=== PATIENT | female | born 1940 | race Caucasian/White ===

== ENCOUNTER → 2016-12-29 | Outpatient (CLI) | payer BC ==
--- NOTE | 2016-12-29 17:36 | CARD ---
APPROVED REPORT EXAM: Two-dimensional and M-mode echocardiogram with Doppler and color Doppler. Other Information Quality : Good INDICATION Murmur MITRAL REGURGITATION 2D DIMENSIONS Left Atrium(2D)3.5 (1.6-4.0cm)IVSd1.2 (0.7-1.1cm) Aortic Root(2D)2.8 (2.0-3.7cm)LVDd4.9 (3.9-5.9cm) LVOT Diameter2.0 (1.8-2.4cm)PWd1.2 (0.7-1.1cm) LVDs3.2 (2.5-4.0cm)FS (%) 35.7 % SV74.7 mlLVEF(%)65.0 (>50%) Aortic Valve AoV Peak Theron.213.8cm/sAoV VTI54.4cm AO Peak GR.18.3mmHgLVOT Peak Theron.104.8cm/s AO Mean GR.10mmHgAVA (VMAX)1.55cm2 Mitral Valve MV E Fcqzjdhw785.4cm/sMV DECEL PPMV010pw MV A Dpepjwwl20.6cm/sE/A Ratio1.3 MVA Planimetry1.60cm2 Tricuspid Valve TR P. Svjyqlrw109bx/sRAP DTFOGQVE1shFd TR Peak Gr.52gqUkLFTP04aeLh Pulmonary Vein S1 Eezymrqk60.8cm/sD2 Umdzbbuh74.3cm/s LEFT VENTRICLE The left ventricle is normal size. There is mild concentric left ventricular hypertrophy. Left ventri franki systolic function is normal. The Ejection Fraction is 65%. There is normal LV segmental wall chay on. Transmitral Doppler flow pattern is Grade I-abnormal relaxation pattern. RIGHT VENTRICLE The right ventricle is normal size. There is normal right ventricular wall thickness. The right ventr icular systolic function is normal. ATRIA The left atrium size is normal. The right atrium size is normal. The interatrial septum is intact wit h no evidence for an atrial septal defect or patent foramen ovale as noted on 2-D or Doppler imaging. AORTIC VALVE The aortic valve is mildly thickened and calcified but opens well. Doppler and Color Flow revealed mi ld aortic regurgitation. There is some partial fusion of 2 cusps of the aortic valve but no significa nt gradient was noted by continuous wave doppler MITRAL VALVE The mitral valve is calcified but opens well. There is no evidence of mitral valve prolapse. There is no mitral valve stenosis. Doppler and Color-flow revealed mild to moderate mitral regurgitation. TRICUSPID VALVE The tricuspid valve is normal in structure and function. Doppler and Color Flow revealed mild tricusp id regurgitation. There is no pulmonary hypertension. The PA pressure was estimated at 22 mmHg. There is no tricuspid valve stenosis. PULMONIC VALVE The pulmonic valve is mildly thickened. Doppler and Color Flow revealed trace to mild pulmonic valvul ar regurgitation. There is no pulmonic valvular stenosis. GREAT VESSELS The aortic root is normal in size. The ascending aorta is normal in size. The IVC is normal in size a nd collapses >50% with inspiration. PERICARDIAL EFFUSION There is no pleural effusion. There is no evidence of significant pericardial effusion. Critical Notification Critical Value: No <Conclusion> Left ventricle systolic function is normal. The Ejection Fraction is 65%. Transmitral Doppler flow pattern is Grade I-abnormal relaxation pattern. There is mild concentric left ventricular hypertrophy. The left atrium size is normal. The right atrium size is normal. Doppler and Color Flow revealed mild aortic regurgitation. There is some partial fusion of 2 cusps of the aortic valve but no significant gradient was noted by continuous wave doppler Doppler and Color-flow revealed mild to moderate mitral regurgitation. Doppler and Color Flow revealed mild tricuspid regurgitation. There is no pulmonary hypertension. The PA pressure was estimated at 22 mmHg. Doppler and Color Flow revealed trace to mild pulmonic valvular regurgitation. There is no evidence of significant pericardial effusion.
== END | disposition home or self-care (01) ==
LOC: ECHO 09:41
PROVIDERS: ATTEND Internal Medicine Cardiovascular Disease
DX: I08.3 Combined rheumatic disorders of mitral, aortic and tricuspid valves (principal)
CPT/HCPCS: 93306

== ENCOUNTER 2017-11-23 13:24 | Inpatient (IN) | payer BC ==
[~2017-11-23] VITALS: Ht 157.5 cm; Wt 72.3 kg
[2017-11-23 14:23] LABS: BASO % 0 % (0-3); EOS # 0.2 x10^3/uL (0.0-0.7); EOS % 2 % (0-3); HEMATOCRIT 32.7 % (36.0-47.0); HEMOGLOBIN 11.3 g/dL (12.0-15.5); LYMPH # 1.9 x10^3/uL (1.0-4.8); LYMPH % 19 % (24-48); MEAN CORPUSCULAR HEMOGLOBIN 29 pg (25-35); MEAN CORPUSCULAR HGB CONC 35 g/dL (31-37); MEAN CORPUSCULAR VOLUME 83 fL (79-100); MONO # 0.8 x10^3/uL (0.0-1.1); MONO % 8 % (0-9); NEUT # 7.5 x10^3uL (1.8-7.7); NEUT % 71 % (31-73); PLATELET COUNT 334 x10^3/uL (140-400); RED BLOOD COUNT 3.93 x10^6/uL (3.50-5.40); WHITE BLOOD COUNT 10.5 x10^3/uL (4.0-11.0)
--- NOTE | 2017-11-23 14:37 | RAD ---
EXAM: Chest, 2 views. HISTORY: Syncope. COMPARISON: None. FINDINGS: 2 views of the chest are obtained. There is no infiltrate, pleural effusion or pneumothorax. The heart is normal in size. IMPRESSION: No acute pulmonary finding. Electronically signed by: Shyanne Erickson MD (11/23/2017 2:34 PM) [place] [id number]
--- NOTE | 2017-11-23 14:43 | EKG ---
[facility] [address] [place] [address] Test Date: 2017-11-23 Test Time: 13:32:52 Pat Name: MELO SALDIVAR Department: Room: Gender: F Engagement Lead: : 1940 Requested By: SARAH NIX Order Number: [id number] Reading MD: Brock Anderson MD Measurements Intervals [place] Rate: 62 P: 90 CT: 176 QRS: 44 QRSD: 94 T: 47 QT: 406 QTc: 414 Interpretive Statements SINUS RHYTHM Electronically Signed On 11-24-2017 12:45:36 CDT by Brock Anderson MD
--- NOTE | 2017-11-23 14:46 | PHYS DOC ---
Past Medical History Past Medical History: Cancer, Hypertension, Other Past Surgical History: Appendectomy, Hysterectomy, Other Additional Past Surgical Histo: R KIDNEY REMOVED,EXP LAP Alcohol Use: None Drug Use: None Adult General Chief Complaint Chief Complaint: SYNCOPE HPI HPI Patient is a 77 year old Female who presents with was out watering her soriano today and stated she started feeling clammy and like she can pass outs she went to her deck and sent on a deck stairs and then end up passing out laying sideways on the stairs. She states she did not fall down stairs. Patient is alert and oriented. Review of Systems Review of Systems Constitutional: Denies fever or chills [] Eyes: Denies change in visual acuity, redness, or eye pain [] HENT: Denies nasal congestion or sore throat [] Respiratory: Denies cough or shortness of breath [] Cardiovascular: No additional information not addressed in HPI [] GI: Denies abdominal pain, nausea, vomiting, bloody stools or diarrhea [] : Denies dysuria or hematuria [] Musculoskeletal: Denies back pain or joint pain [] Integument: Denies rash or skin lesions [] Neurologic: Denies headache, focal weakness or sensory changes [] Endocrine: Denies polyuria or polydipsia [] All other systems were reviewed and found to be within normal limits, except as documented in this note. Current Medications Current Medications Allergies Allergies Allergies Coded Allergies Type Severity Reaction Last Updated Verified No Known Drug Allergies 11/23/17 No Physical Exam Physical Exam Constitutional: Well developed, well nourished, no acute distress, non-toxic appearance. [] HENT: Normocephalic, atraumatic, bilateral external ears normal, oropharynx moist, no oral exudates, nose normal. [] Eyes: PERRLA, EOMI, conjunctiva normal, no discharge. [] Neck: Normal range of motion, no tenderness, supple, no stridor. [] Cardiovascular:Heart rate regular rhythm, no murmur [] Lungs & Thorax: Bilateral breath sounds clear to auscultation [] Abdomen: Bowel sounds normal, soft, no tenderness, no masses, no pulsatile masses. [] Skin: Warm, dry, no erythema, no rash. [] Back: No tenderness, no CVA tenderness. [] Extremities: No tenderness, no cyanosis, no clubbing, ROM intact, no edema. [] Neurologic: Alert and oriented X 3, normal motor function, normal sensory function, no focal deficits noted. [] Psychologic: Affect normal, judgement normal, mood normal. [] Current Patient Data Vital Signs Vital Signs Date Time Temp Pulse Resp B/P (MAP) Pulse Ox O2 Delivery O2 Flow Rate FiO2 11/23/17 13:24 99.1 66 20 143/69 (93) 99 Room Air 99.1 Lab Values Laboratory Tests Test 11/23/17 14:00 White Blood Count 10.5 x10^3/uL (4.0-11.0) Red Blood Count 3.93 x10^6/uL (3.50-5.40) Hemoglobin 11.3 g/dL (12.0-15.5) L Hematocrit 32.7 % (36.0-47.0) L Mean Corpuscular Volume 83 fL (79-100) Mean Corpuscular Hemoglobin 29 pg (25-35) Mean Corpuscular Hemoglobin Concent 35 g/dL (31-37) Red Cell Distribution Width 14.0 % (11.5-14.5) Platelet Count 334 x10^3/uL (140-400) Neutrophils (%) (Auto) 71 % (31-73) Lymphocytes (%) (Auto) 19 % (24-48) L Monocytes (%) (Auto) 8 % (0-9) Eosinophils (%) (Auto) 2 % (0-3) Basophils (%) (Auto) 0 % (0-3) Neutrophils # (Auto) 7.5 x10^3uL (1.8-7.7) Lymphocytes # (Auto) 1.9 x10^3/uL (1.0-4.8) Monocytes # (Auto) 0.8 x10^3/uL (0.0-1.1) Eosinophils # (Auto) 0.2 x10^3/uL (0.0-0.7) Basophils # (Auto) 0.0 x10^3/uL (0.0-0.2) Sodium Level 141 mmol/L (136-145) Potassium Level 4.3 mmol/L (3.5-5.1) Chloride Level 105 mmol/L (98-107) Carbon Dioxide Level 26 mmol/L (21-32) Anion Gap 10 (6-14) Blood Urea Nitrogen 23 mg/dL (7-20) H Creatinine 1.7 mg/dL (0.6-1.0) H Estimated GFR (Cockcroft-Gault) 29.2 BUN/Creatinine Ratio 14 (6-20) Glucose Level 220 mg/dL (70-99) H Calcium Level 9.7 mg/dL (8.5-10.1) Total Bilirubin 0.5 mg/dL (0.2-1.0) Aspartate Amino Transferase (AST) 17 U/L (15-37) Alanine Aminotransferase (ALT) 20 U/L (14-59) Alkaline Phosphatase 80 U/L (46-116) Troponin I Quantitative < 0.017 ng/mL (0.000-0.055) Total Protein 7.5 g/dL (6.4-8.2) Albumin 3.6 g/dL (3.4-5.0) Albumin/Globulin Ratio 0.9 (1.0-1.7) L Laboratory Tests 11/23/17 14:00 Laboratory Tests 11/23/17 14:00 EKG EKG Sinus rhythm, no STEMI Interpretation Time: READ BY DR GEE Radiology/Procedures Radiology/Procedures CHEST X RAY[] Impressions: [address] [phone] IMAGING REPORT Signed PATIENT: MELO SALDIVAR ACCOUNT: [id number] : 1940 LOCATION: ER AGE: 77 SEX: F EXAM STATUS: REG ER ORD. PHYSICIAN: SARAH NIX APRN REASON: syncope PROCEDURE: CHEST PA & LATERAL EXAM: Chest, 2 views. HISTORY: Syncope. COMPARISON: None. FINDINGS: 2 views of the chest are obtained. There is no infiltrate, pleural effusion or pneumothorax. The heart is normal in size. IMPRESSION: No acute pulmonary finding. Electronically signed by: Shyanne Bassett MD (11/23/2017 2:34 PM) [place] [id number] DICTATED and SIGNED BY: SHYANNE BASSETT MD DATE: 11/23/[address] [id number] IMAGING REPORT Signed PATIENT: MELO SALDIVAR ACCOUNT: [id number] : 1940 LOCATION: ER AGE: 77 SEX: F EXAM STATUS: REG ER ORD. PHYSICIAN: SARAH NIX APRN REASON: syncope PROCEDURE: CT HEAD WO CONTRAST EXAM: Head CT without contrast. HISTORY: Syncope. TECHNIQUE: Computed tomographic images of the head were obtained without contrast. *One or more of the following individualized dose reduction techniques were utilized for this examination: 1. Automated exposure control. 2. Adjustment of the mA and/or kV according to patient size. 3. Use of iterative reconstruction technique. COMPARISON: None. FINDINGS: There is no acute or subacute extra-axial or intraparenchymal hemorrhage. There is no mass effect or midline shift. There is no hydrocephalus. There are areas of decreased attenuation within the cerebral white matter, nonspecific and likely related to chronic small vessel disease. The visualized portions of the orbits, paranasal sinuses and mastoid air cells are unremarkable. No suspicious calvarial lesion is seen. IMPRESSION: 1. No acute intracranial finding. Note is made that MRI is more sensitive for acute infarction. 2. Scattered areas of hypodensity within the cerebral white matter, likely due to chronic small vessel disease. Electronically signed by: Shyanne Bassett MD (11/23/2017 2:40 PM) [facility] DICTATED and SIGNED BY: SHYANNE BASSETT MD DATE: 11/23/17 1439 Course & Med Decision Making Course & Med Decision Making Patient is a 77 year old Female who presents with was out watering her soriano today and stated she started feeling clammy and like she can pass outs she went to her deck and sent on a deck stairs and then end up passing out laying sideways on the stairs. She states she did not fall down stairs. Patient is alert and oriented. She states that the last time this happened her blood sugar was low. Patient is a diabetic the takes insulin. Patient's blood sugar is 220. Patient denies chest pain or shortness of air. Patient denies nausea, vomiting, diarrhea. Patient states she did not hit her head. Patient has no extremity pain or edema. Her lungs are clear to auscultation. Her abdomen is soft and nontender. [place] syncope rule states that she was not at risk. [place] CT Rule stated to consider CT of the head. CT the head was negative for acute findings. His blood pressures 145/69, 99% on room air, heart rate was 53. Patient is alert and oriented. Patient is neurologically intact. Patient denies any visual deficiencies. I called and talked to Dr. Rasmussen told her about the patient and that she is being admitted. Patient is admitted under Dr. rasmussen. Patient is stable and in no distress. [] Dragon Disclaimer Dragon Disclaimer This electronic medical record was generated, in whole or in part, using a voice recognition dictation system. Departure Departure Referrals: FRANK IDA MD (PCP) SARAH NIX TWISTER OPERATOR Nov 23, 2017 14:46
[2017-11-23 14:47] LABS: CALCIUM 9.7 mg/dL (8.5-10.1); CREATININE 1.7 mg/dL (0.6-1.0); GFR 29.2; POTASSIUM 4.3 mmol/L (3.5-5.1)
[2017-11-23 14:53] LABS: ALBUMIN 3.6 g/dL (3.4-5.0); ALBUMIN/GLOBULIN RATIO 0.9 (1.0-1.7); TOTAL BILIRUBIN 0.5 mg/dL (0.2-1.0); TOTAL PROTEIN 7.5 g/dL (6.4-8.2)
[2017-11-23] MEDS ORDERED: ONDANSETRON PF 4 MG/2 ML VIAL. IV PRN (15:30)
[2017-11-23 19:00] VITALS: BP 166/74
[2017-11-23] MEDS ORDERED: INSU300I SQ (20:09)
[2017-11-23] MEDS ORDERED: AMLO10TA6 PO (20:09)
[2017-11-23] MEDS ORDERED: LOSA1TAB22 PO (20:10)
[2017-11-23 22:42] VITALS: BP 140/69
[2017-11-24 03:00] VITALS: BP 151/69
[2017-11-24 07:00] VITALS: BP 158/65
--- NOTE | 2017-11-24 09:10 | PDOC1 ---
H & P H&P HPI: Ms. Meek is a 77 -year-old female with past medical history of type 2 diabetes, complicated by stage III chronic kidney disease, hypertension, hyperlipidemia, mitral regurgitation, gout, history of renal cell carcinoma who presented to the emergency room yesterday for concerns of an episode of syncope. 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 She then was outside working in the garden when she felt faint, nauseous and hot. She sat down and then reportedly passed out. She does not report hitting her head. She has had one similar previous episode, at that time her blood sugar was low. On presentation to the emergency room her blood sugar was 220. Labs are remarkable for chronic normocytic anemia and creatinine mildly elevated from her baseline of approximately 1.5. CT head and chest x-ray were unremarkable for acute findings. ROS: Constitutional: Denies fever, fatigue, chills HEENT: Denies sore throat, vision changes Cardio: Denies chest pain, dyspnea with exertion, syncope, palpitations, edema Pulmonary: Denies shortness of breath, cough, wheezing GI: Denies nausea, vomiting, diarrhea, constipation Neuro: Denies weakness, paresthesias, confusion PMH: As above Family Hx: Parents history is unknown, daughter and son both have hypertension. Social Hx: Nonsmoker, no significant alcohol use Surg Hx: Hysterectomy, tonsillectomy, appendectomy, nephrectomy Meds: Reviewed and reconciled Allergies: Reviewed PE: Alert, oriented, no acute distress EOMI, sclera non-icteric Neck supple RRR, no murmur CTAB, no wheezes, crackles or rhonchi Soft, NT, ND, normal bowel sounds. No edema, cyanosis. Normal capillary refill. Calm, cooperative, mood/affect within normal limits Assessment/Plan: Vasovagal syncope Type 2 diabetes, fairly well controlled Stage III kidney disease, mild elevation from baseline Hypertension Hyperlipidemia Mitral regurgitation Gout History of renal cell carcinoma status post nephrectomy Discussed with patient that she should follow up with Dr. Michael as outpatient. No further inpatient work up is necessary at this time. She is comfortable with plan to discharge with follow up in clinic in 1 week with repeat BMP at that time. She will take it easy at home for the next few days. All home meds are unchanged. ENRIKE FERGUSON MD Nov 24, 2017 09:10
[2017-11-24] MEDS ORDERED: INFLUENZA VAX SCREEN BY RX. MC PRN (10:45)
[2017-11-24 10:48] VITALS: BP 158/67
== END 2017-11-24 12:00 | disposition home or self-care (01) | DRG 74 ==
LOC: ER 13:24 → 5 SOUTH 15:16
PROVIDERS: ADMIT Family Medicine; ATTEND Family Medicine
DX: G90.8 Other disorders of autonomic nervous system (principal); E11.22 Type 2 diabetes mellitus with diabetic chronic kidney disease; N18.3 Chronic kidney disease, stage 3 (moderate); I12.9 Hypertensive chronic kidney disease with stage 1 through stage 4 chronic kidney disease, or unspecified chronic kidney disease; E78.5 Hyperlipidemia, unspecified; I34.0 Nonrheumatic mitral (valve) insufficiency; M10.9 Gout, unspecified; Z90.49 Acquired absence of other specified parts of digestive tract; Z90.710 Acquired absence of both cervix and uterus; Z90.5 Acquired absence of kidney; Z85.528 Personal history of other malignant neoplasm of kidney
CPT/HCPCS: 36415; 70450; 71046; 80053; 82962; 84484; 85025; 90471; 90756; 93005; 99285-25; Q2035

== ENCOUNTER 2018-09-22 13:38 | Emergency (ER) | payer BC ==
[~2018-09-22] VITALS: Ht 157.5 cm; Wt 74.8 kg
[~2018-09-22 13:38] MED LIST: AMLO10TA8 PO; INSU300I SQ; LOSA1TAB22 PO
[2018-09-22 14:03] LABS: BASO % 0 % (0-3); EOS # 0.4 x10^3/uL (0.0-0.7); EOS % 3 % (0-3); HEMATOCRIT 32.1 % (36.0-47.0); HEMOGLOBIN 10.7 g/dL (12.0-15.5); LYMPH # 2.4 x10^3/uL (1.0-4.8); LYMPH % 19 % (24-48); MEAN CORPUSCULAR HEMOGLOBIN 28 pg (25-35); MEAN CORPUSCULAR HGB CONC 33 g/dL (31-37); MEAN CORPUSCULAR VOLUME 85 fL (79-100); MONO # 1.2 x10^3/uL (0.0-1.1); MONO % 10 % (0-9); NEUT # 8.1 x10^3/uL (1.8-7.7); NEUT % 67 % (31-73); PLATELET COUNT 298 x10^3/uL (140-400); RED BLOOD COUNT 3.76 x10^6/uL (3.50-5.40); RED CELL DISTRIBUTION WIDTH 13.7 % (11.5-14.5); WHITE BLOOD COUNT 12.1 x10^3/uL (4.0-11.0)
[2018-09-22 14:15] LABS: CALCIUM 9.5 mg/dL (8.5-10.1); CREATININE 1.7 mg/dL (0.6-1.0); GFR 29.1; POTASSIUM 4.5 mmol/L (3.5-5.1)
--- NOTE | 2018-09-22 14:16 | RAD ---
Chest radiograph 09/22/2018 1:56 PM INDICATION: Syncope COMPARISON: November 23, 2017 TECHNIQUE: Frontal view of the chest is provided. FINDINGS: The cardiomediastinal silhouette is within normal limits. There are no pleural effusions. There is no pulmonary vascular congestion. There is no pneumothorax. The lungs are clear. No significant osseous abnormality is identified. IMPRESSION: No acute cardiopulmonary process. Electronically signed by: Germaine Balderas MD (09/22/2018 2:13 PM) [id number]
[2018-09-22 14:21] LABS: ALBUMIN 3.5 g/dL (3.4-5.0); ALBUMIN/GLOBULIN RATIO 0.9 (1.0-1.7); TOTAL BILIRUBIN 0.6 mg/dL (0.2-1.0); TOTAL PROTEIN 7.5 g/dL (6.4-8.2)
[2018-09-22 14:34] LABS: FREE T4 0.8 ng/dL (0.76-1.46); THYROID STIM HORMONE (TSH) 1.722 uIU/mL (0.358-3.74)
[2018-09-22] MEDS ORDERED: IV NORMAL SALINE 1000ML BAG 1,000 ML IV ONE (15:15)
--- NOTE | 2018-09-22 16:06 | EKG ---
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
[2018-09-22 16:30] VITALS: BP 130/60
--- NOTE | 2018-09-22 16:37 | PHYS DOC ---
Past Medical History Past Medical History: Cancer, Diabetes-Type II, Hypertension, Other Past Surgical History: Appendectomy, Hysterectomy, Other Additional Past Surgical Histo: R KIDNEY REMOVED,EXP LAP Alcohol Use: None Drug Use: None Adult General Chief Complaint Chief Complaint: SYNCOPE HPI HPI Patient is a 78 year old female who was brought here from a local grocery story due to near syncopal episode. Patient had a light breakfast this morning. Patient was shopping at [employer], had not eaten anything for lunch. She was at the [employer], waiting to check out when she began to feel sick, dizzy, felt like she was going to pass out so they sat her down on the floor, EMS was called to take her here for evaluation. Patient has history syncopal episode in the past but has not happened recently. She denies any chest pain, no headache, no abdominal pain, no nausea vomiting prior to the episode. Patient has history hypertension, she is on metoprolol 25 mg twice a day and other antihypertensive medications. Patient took her medications this morning already. She says she feels much better now. Review of Systems Review of Systems Constitutional: Denies fever or chills [] Eyes: Denies change in visual acuity, redness, or eye pain [] HENT: Denies nasal congestion or sore throat [] Respiratory: Denies cough or shortness of breath [] Cardiovascular: No additional information not addressed in HPI [] GI: Denies abdominal pain, nausea, vomiting, bloody stools or diarrhea [] : Denies dysuria or hematuria [] Musculoskeletal: Denies back pain or joint pain [] Integument: Denies rash or skin lesions [] Neurologic: Denies headache, focal weakness or sensory changes [] Endocrine: Denies polyuria or polydipsia [] All other systems were reviewed and found to be within normal limits, except as documented in this note. Current Medications Current Medications Current Medications Medications (Trade) Dose Ordered Sig/Efra Start Time Stop Time Status Last Admin Dose Admin Sodium Chloride 1,000 ml @ 1,000 mls/hr 1X ONCE 09/22/18 15:15 09/22/18 16:14 DC 09/22/18 15:40 1,000 MLS/HR Allergies Allergies Allergies Coded Allergies Type Severity Reaction Last Updated Verified No Known Drug Allergies 11/23/17 No Physical Exam Physical Exam Constitutional: Well developed, well nourished, no acute distress, non-toxic appearance. [] HENT: Normocephalic, atraumatic, bilateral external ears normal, oropharynx moist, no oral exudates, nose normal. [] Eyes: PERRLA, EOMI, conjunctiva normal, no discharge. [] Neck: Normal range of motion, no tenderness, supple, no stridor. [] Cardiovascular:Heart rate with sinus bradycardia, regular rhythm, no murmur [] Lungs & Thorax: Bilateral breath sounds clear to auscultation [] Abdomen: Bowel sounds normal, soft, no tenderness, no masses, no pulsatile m asses. [] Skin: Warm, dry, no erythema, no rash. [] Back: No tenderness, no CVA tenderness. [] Extremities: No tenderness, no cyanosis, no clubbing, ROM intact, no edema. [] Neurologic: Alert and oriented X 3, normal motor function, normal sensory function, no focal deficits noted. [] Psychologic: Affect normal, judgement normal, mood normal. [] Current Patient Data Vital Signs Vital Signs Date Time Temp Pulse Resp B/P (MAP) Pulse Ox O2 Delivery O2 Flow Rate FiO2 09/22/18 16:30 56 18 130/60 (83) 99 Room Air 09/22/18 13:45 98.5 98.5 Lab Values Laboratory Tests Test 09/22/18 13:45 White Blood Count 12.1 x10^3/uL (4.0-11.0) H Red Blood Count 3.76 x10^6/uL (3.50-5.40) Hemoglobin 10.7 g/dL (12.0-15.5) L Hematocrit 32.1 % (36.0-47.0) L Mean Corpuscular Volume 85 fL (79-100) Mean Corpuscular Hemoglobin 28 pg (25-35) Mean Corpuscular Hemoglobin Concent 33 g/dL (31-37) Red Cell Distribution Width 13.7 % (11.5-14.5) Platelet Count 298 x10^3/uL (140-400) Neutrophils (%) (Auto) 67 % (31-73) Lymphocytes (%) (Auto) 19 % (24-48) L Monocytes (%) (Auto) 10 % (0-9) H Eosinophils (%) (Auto) 3 % (0-3) Basophils (%) (Auto) 0 % (0-3) Neutrophils # (Auto) 8.1 x10^3/uL (1.8-7.7) H Lymphocytes # (Auto) 2.4 x10^3/uL (1.0-4.8) Monocytes # (Auto) 1.2 x10^3/uL (0.0-1.1) H Eosinophils # (Auto) 0.4 x10^3/uL (0.0-0.7) Basophils # (Auto) 0.0 x10^3/uL (0.0-0.2) Sodium Level 138 mmol/L (136-145) Potassium Level 4.5 mmol/L (3.5-5.1) Chloride Level 102 mmol/L (98-107) Carbon Dioxide Level 25 mmol/L (21-32) Anion Gap 11 (6-14) Blood Urea Nitrogen 35 mg/dL (7-20) H Creatinine 1.7 mg/dL (0.6-1.0) H Estimated GFR (Cockcroft-Gault) 29.1 BUN/Creatinine Ratio 21 (6-20) H Glucose Level 140 mg/dL (70-99) H Calcium Level 9.5 mg/dL (8.5-10.1) Magnesium Level 2.0 mg/dL (1.8-2.4) Total Bilirubin 0.6 mg/dL (0.2-1.0) Aspartate Amino Transferase (AST) 16 U/L (15-37) Alanine Aminotransferase (ALT) 17 U/L (14-59) Alkaline Phosphatase 69 U/L (46-116) Troponin I Quantitative < 0.017 ng/mL (0.000-0.055) Total Protein 7.5 g/dL (6.4-8.2) Albumin 3.5 g/dL (3.4-5.0) Albumin/Globulin Ratio 0.9 (1.0-1.7) L Thyroid Stimulating Hormone (TSH) 1.722 uIU/mL (0.358-3.74) Free Thyroxine 0.80 ng/dL (0.76-1.46) Laboratory Tests 09/22/18 13:45 Laboratory Tests 09/22/18 13:45 EKG EKG ekg was read by this physician at 1342, sinus bradycardia, rate of 49 bpm, no STEMI[] Radiology/Procedures Radiology/Procedures [] Course & Med Decision Making Course & Med Decision Making Pertinent Labs and Imaging studies reviewed. (See chart for details) Patient was found to be dehydrated. She was given IV fluid, felt much better. She was found to be in sinus bradycardia, most likely due to metoprololol that she is on (25 mg BID) Dragon Disclaimer Dragon Disclaimer This electronic medical record was generated, in whole or in part, using a voice recognition dictation system. Departure Departure Impression: Primary Impression: Syncope, near Disposition: 01 HOME, SELF-CARE Condition: STABLE Referrals: FRANK DIA MD (PCP) PLEASE FOLLOW UP WITH DR. FERGUSON AT 9:20 AM TOMORROW. Patient Instructions: Bradycardia, Near-Syncope, [id number] Additional Instructions: DO NOT TAKE YOUR METOPROLOL TODAY. FERCHO GEE DO Sep 22, 2018 16:37
== END 2018-09-22 16:52 | disposition home or self-care (01) ==
LOC: ER 13:38
DX: R55 Syncope and collapse (principal); R00.1 Bradycardia, unspecified; E11.9 Type 2 diabetes mellitus without complications; I10 Essential (primary) hypertension
CPT/HCPCS: 36415; 71045; 80053; 83735; 84439; 84443; 84484; 85025; 93005; 96360; 99285; J7030

== ENCOUNTER → 2018-10-13 | Outpatient (CLI) | payer BC ==
[2018-09-22 16:30] VITALS: BP 130/60
--- NOTE | 2018-10-13 10:23 | CARD ---
MR#: [id number] Date of Study: 10/13/2018 Ordering Physician: CHIKA COREA, Referring Physician: CHIKA COREA, Tech: Ruthie Hayden RDCS APPROVED REPORT EXAM: Two-dimensional and M-mode echocardiogram with Doppler and color Doppler. Other Information Quality : Good INDICATION Mitral Valve Disease Mitral Regurgitation 2D DIMENSIONS RVDd2.6 (2.9-3.5cm)Left Atrium(2D)3.6 (1.6-4.0cm) IVSd1.0 (0.7-1.1cm)Aortic Root(2D)2.9 (2.0-3.7cm) LVDd4.8 (3.9-5.9cm)LVOT Diameter2.2 (1.8-2.4cm) PWd1.1 (0.7-1.1cm)LVDs2.9 (2.5-4.0cm) FS (%) 30.0 %SV76.9 ml LVEF(%)60.0 (>50%) Aortic Valve AoV Peak Theron.206.8cm/sAoV VTI48.9cm AO Peak GR.17.1mmHgLVOT Peak Theron.119.4cm/s AO Mean GR.10mmHgAVA (VMAX)2.13cm2 ALEKSANDER (VTI)2.10cm2 Mitral Valve MV E Tdtlumsh670.5cm/sMV DECEL [id number] MV A Icpuokzh34.9cm/sE/A Ratio1.3 Tricuspid Valve TR P. Jpftxcpq336nz/sRAP XQBIQWXH9akCm TR Peak Gr.89gfPtXVMC33hgHs Pulmonary Vein S1 Pydxshbl45.6cm/sD2 Vdoacvqo81.3cm/s LEFT VENTRICLE The left ventricle is normal size. There is normal left ventricular wall thickness. The left ventricu lar systolic function is normal and the ejection fraction is within normal range. The Ejection Fracti on is 55-60%. There is normal LV segmental wall motion. Transmitral Doppler flow pattern is Grade I-a bnormal relaxation pattern. RIGHT VENTRICLE The right ventricle is normal size. The right ventricular systolic function is normal. ATRIA The left atrium size is normal. The right atrium size is normal. The interatrial septum is intact wit h no evidence for an atrial septal defect or patent foramen ovale as noted on 2-D or Doppler imaging. AORTIC VALVE The aortic valve is calcified but opens well. Doppler and Color Flow revealed trace to mild aortic re gurgitation. There is no significant aortic valvular stenosis. MITRAL VALVE The mitral valve is calcified but opens well. Mitral annular calcification is mild. There is no evide nce of mitral valve prolapse. There is no mitral valve stenosis. Doppler and Color-flow revealed mild mitral regurgitation. TRICUSPID VALVE The tricuspid valve is normal in structure and function. Doppler and Color Flow revealed mild tricusp id regurgitation. There is mild pulmonary hypertension. The PA pressure was estimated at 37 mmHg. The re is no tricuspid valve stenosis. PULMONIC VALVE Doppler and Color Flow revealed trace pulmonic valvular regurgitation. There is no pulmonic valvular stenosis. GREAT VESSELS The aortic root is normal in size. The ascending aorta is normal in size. The IVC is normal in size a nd collapses >50% with inspiration. PERICARDIAL EFFUSION There is no evidence of significant pericardial effusion. Critical Notification Critical Value: No <Conclusion> The left ventricular systolic function is normal and the ejection fraction is within normal range. Th e Ejection Fraction is 55-60%. There is normal LV segmental wall motion. Doppler and Color Flow revealed trace to mild aortic regurgitation. Doppler and Color-flow revealed mild mitral regurgitation. Doppler and Color Flow revealed mild tricuspid regurgitation. There is mild pulmonary hypertension. T he PA pressure was estimated at 37 mmHg. Doppler and Color Flow revealed trace pulmonic valvular regurgitation. Signed by : Brock Anderson, Electronically Approved : 10/13/2018 10:23:28
== END | disposition home or self-care (01) ==
LOC: ECHO 08:30
PROVIDERS: ATTEND Physician Assistant Medical
DX: I08.3 Combined rheumatic disorders of mitral, aortic and tricuspid valves (principal); I27.20 Pulmonary hypertension, unspecified
CPT/HCPCS: 93306

== ENCOUNTER → 2018-10-18 | Outpatient (CLI) | payer BC ==
[2018-09-22 16:30] VITALS: BP 130/60
--- NOTE | 2018-10-18 16:46 | KCIC ---
Clinical indications: Syncope.. Duplex sonography of the cervical portion of both carotid arteries was performed including color flow imaging and spectral waveform analysis with flow velocity measurement and walton scale evaluation. Right side: Peak systolic flow velocity of the CCA is 73 cm/sec. Peak systolic flow velocity of the ICA is 76 cm/sec. Thus, the ICA/CCA ratio is 1.04. Peak end diastolic flow velocity of the ICA is 20 cm/sec. The peak systolic velocity of the ECA is 95 cm/sec. Left side: Peak systolic flow velocity of the CCA is 81 cm/sec. Peak systolic flow velocity of the ICA is 80 cm/sec. Thus, the ICA/CCA ratio is approximately 1.0. Peak end diastolic flow velocity of the ICA is 26 cm/sec. Peak systolic flow velocity of the ECA is 87 cm/sec. Minimal plaque formation is seen within the carotid bifurcations bilaterally which is less than 50%.. Antegrade vertebral flow is seen bilaterally. The measurements were made using the NASCET criteria. Impression:No significant plaque formation is identified within the carotid bifurcations on either side Electronically signed by: Min Vergara MD (10/18/2018 4:43 PM) [place] [id number]
== END | disposition home or self-care (01) ==
LOC: KCIC US 13:49
PROVIDERS: ATTEND Family Medicine
DX: R55 Syncope and collapse (principal)
CPT/HCPCS: 93880

== ENCOUNTER 2019-10-12 00:34 | Inpatient (IN) | payer BC ==
[2019-10-12] VITALS (8 sets, daily range): BP systolic 100–163; BP diastolic 53–78
[~2019-10-12] VITALS: Ht 157.5 cm; Wt 71.1 kg
--- NOTE | 2019-10-12 00:43 | PHYS DOC ---
Past Medical History Past Medical History: Cancer, Diabetes-Type II, Hypertension, Other Past Surgical History: Appendectomy, Hysterectomy, Other Additional Past Surgical Histo: R KIDNEY REMOVED,EXP LAP Smoking Status: Never Smoker Alcohol Use: None Drug Use: None General Adult EDM: Chief Complaint: MECHANICAL FALL HPI: HPI: Patient is a 79 year old female who says she slipped off the toilet and injured her left shoulder just prior to arrival. Patient has EMS complaining of severe left shoulder pain that is worse with range of motion. Patient has a deformity of the left shoulder. Patient thinks he may have passed out. Patient denies hitting her head or having headaches. Pain radiates down her left arm. Review of Systems: Review of Systems: Constitutional: Denies fever or chills. [] Eyes: Denies change in visual acuity. [] HENT: Denies nasal congestion or sore throat. [] Respiratory: Denies cough or shortness of breath. [] Cardiovascular: Denies chest pain or edema. [] GI: Denies abdominal pain, nausea, vomiting, bloody stools or diarrhea. [] : Denies dysuria. [] Musculoskeletal: Denies back pain but complains of left shoulder pain Integument: Denies rash. [] Neurologic: Denies headache, focal weakness or sensory changes. [] Endocrine: Denies polyuria or polydipsia. [] Lymphatic: Denies swollen glands. [] Psychiatric: Denies depression or anxiety. [] Heart Score: Risk Factors: Risk Factors: DM, Current or recent (<one month) smoker, HTN, HLP, family history of CAD, obesity. Risk Scores: Score 0 - 3: 2.5% MACE over next 6 weeks - Discharge Home Score 4 - 6: 20.3% MACE over next 6 weeks - Admit for Clinical Observation Score 7 - 10: 72.7% MACE over next 6 weeks - Early Invasive Strategies Allergies: Allergies: Allergies Coded Allergies Type Severity Reaction Last Updated Verified No Known Drug Allergies 11/23/17 No Physical Exam: PE: Constitutional: Well developed, well nourished, no acute distress, non-toxic appearance. [] HENT: Normocephalic, atraumatic, bilateral external ears normal no trismus nose normal. [] Eyes: PERRLA, EOMI, conjunctiva normal, no discharge. [] Neck: Normal range of motion, no tenderness, supple, no stridor. [] Cardiovascular: Regular rhythm, bradycardic, peripheral pulses intact Lungs & Thorax: No respiratory distress Abdomen: , soft, no tenderness, no masses, no pulsatile masses. [] Skin: Warm, dry, no erythema, no rash. [] Back: No tenderness, no CVA tenderness. [] Extremities: No tenderness, no cyanosis, no clubbing, tenderness and swelling with deformity of the left shoulder, no edema. [] Neurologic: Alert and oriented X 3, normal motor function, normal sensory function, no focal deficits noted. [] No deltoid anesthesia Psychologic: Affect normal, judgement normal, mood normal. [] Current Patient Data: Labs: Laboratory Tests Test 10/12/19 00:50 White Blood Count 11.5 x10^3/uL Red Blood Count 3.93 x10^6/uL Hemoglobin 11.1 g/dL Hematocrit 33.5 % Mean Corpuscular Volume 85 fL Mean Corpuscular Hemoglobin 28 pg Mean Corpuscular Hemoglobin Concent 33 g/dL Red Cell Distribution Width 15.5 % Platelet Count 334 x10^3/uL Neutrophils (%) (Auto) 68 % Lymphocytes (%) (Auto) 23 % Monocytes (%) (Auto) 6 % Eosinophils (%) (Auto) 3 % Basophils (%) (Auto) 1 % Neutrophils # (Auto) 7.8 x10^3/uL Lymphocytes # (Auto) 2.6 x10^3/uL Monocytes # (Auto) 0.7 x10^3/uL Eosinophils # (Auto) 0.3 x10^3/uL Basophils # (Auto) 0.1 x10^3/uL Prothrombin Time 13.2 SEC Prothromb Time International Ratio 1.0 Activated Partial Thromboplast Time 27 SEC Sodium Level 141 mmol/L Potassium Level 4.9 mmol/L Chloride Level 105 mmol/L Carbon Dioxide Level 29 mmol/L Anion Gap 7 Blood Urea Nitrogen 23 mg/dL Creatinine 1.8 mg/dL Estimated GFR (Cockcroft-Gault) 27.2 BUN/Creatinine Ratio 13 Glucose Level 161 mg/dL Calcium Level 9.6 mg/dL Total Bilirubin 0.3 mg/dL Aspartate Amino Transf (AST/SGOT) 21 U/L Alanine Aminotransferase (ALT/SGPT) 20 U/L Alkaline Phosphatase 74 U/L Troponin I Quantitative < 0.017 ng/mL Total Protein 7.4 g/dL Albumin 3.5 g/dL Albumin/Globulin Ratio 0.9 Current Medications Medications (Trade) Dose Ordered Sig/Efra Route PRN Reason Start Time Stop Time Status Last Admin Dose Admin Propofol (Diprivan) 200 mg 1X ONCE IV 10/12/19 02:00 10/12/19 02:01 DC 10/12/19 01:58 Ondansetron HCl (Zofran) 4 mg STK-MED ONCE .ROUTE 10/12/19 01:54 10/12/19 01:54 DC Vital Signs: Vital Signs Date Time Temp Pulse Resp B/P (MAP) Pulse Ox O2 Delivery O2 Flow Rate FiO2 10/12/19 01:55 49 20 139/65 4.0 57 10 4.0 Vital Signs Date Time Temp Pulse Resp B/P (MAP) Pulse Ox O2 Delivery O2 Flow Rate FiO2 10/12/19 01:55 49 20 139/65 4.0 57 10 4.0 EKG: EKG: [] EKG interpreted by mt sinus bradycardia with a rate of 50 normal axis normal intervals normal ST segments Radiology/Procedures: Radiology/Procedures: [place] [address] IMAGING REPORT Signed PATIENT: MELO SALDIVAR ACCOUNT: [id number] : 1940 LOCATION: ER AGE: 79 SEX: F EXAM STATUS: PRE ER ORD. PHYSICIAN: JENNIFER SANTANA MD REASON: fall PROCEDURE: SHOULDER 2+V LEFT INDICATION: Reason: fall / Spl. Instructions: / History: COMPARISON: None. IMPRESSION: Left shoulder: 2 views obtained. Anterior inferior shoulder dislocation is identified. Electronically signed by: Jarred iDa MD (10/12/2019 1:10 AM) [id number] DICTATED and SIGNED BY: JARRED DIA MD DATE: 10/12/19 0110 [][address] [id number] IMAGING REPORT Signed PATIENT: MELO SALDIVAR ACCOUNT: [id number] : 1940 LOCATION: ER AGE: 79 SEX: F EXAM STATUS: REG ER ORD. PHYSICIAN: JENNIFER SANTANA MD REASON: post reduction PROCEDURE: SHOULDER 2+V LEFT INDICATION: Reason: post reduction / Spl. Instructions: / History: COMPARISON: Earlier same day IMPRESSION: Left shoulder: 2 views obtained. Improved alignment status post reduction of previously identified left shoulder dislocation. Electronically signed by: Jarred Dia MD (10/12/2019 3:00 AM) [id number] DICTATED and SIGNED BY: JARRED DIA MD DATE: 10/12/19 0300 [facility] [address] [place] [address] IMAGING REPORT Signed PATIENT: MELO SALDIVAR ACCOUNT: [id number] : 1940 LOCATION: ER AGE: 79 SEX: F EXAM STATUS: PRE ER ORD. PHYSICIAN: JENNIFER SANTANA MD REASON: fall PROCEDURE: PORTABLE CHEST 1V INDICATION: Reason: fall / Spl. Instructions: / History: COMPARISON: September 2018 FINDINGS: Single view of chest obtained. Left shoulder dislocation. Enlarged cardiomediastinal silhouette. Degenerative changes the spine. Coarsened interstitial markings bilaterally with hyperexpansion again seen. IMPRESSION: * Anterior left shoulder dislocation. * Hyperexpanded lungs with prominent interstitial markings. Would correlate for possible causes such as asthma or emphysema. Electronically signed by: Jarred Dia MD (10/12/2019 1:09 AM) [email or web address] Course & Med Decision Making: Course & Med Decision Making Pertinent Labs and Imaging studies reviewed. (See chart for details) []Indication: [Left anterior shoulder dislocation] Consent: I have discussed with the patient and/or the patient sales representative public [employer] the indication, alternatives, and the possible risks and /or complications of the planned procedure and the anesthesia methods. 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 Patient was reassessed immediately prior to the procedure and no changes. Procedure initiated at 1:56 AM and finished at 2:01 AM Pre-Sedation Documentation and Exam: [Patient is alert and oriented in no acute distress] Airway Assessment: normal. Mallampati class I Prior History of Anesthesia Complications: none. ASA Classification: [ASA 3] Sedation/ Anesthesia Plan: [Moderate sedation with propofol] Medications Used: see nursing notes. 30 mg of propofol pushed by me Monitoring and Safety: The patient was placed on a traffic monitor specialist and vital signs, pulse oximetry and level of consciousness were continuously evaluated throughout the procedure. The patient was closely monitored until recovery from the medications was complete and the patient had returned to baseline status. 2 nurses and A. tach were on standby at all times during the procedure. End-tidal CO2 was used with readings in the low 30s for the entire procedure. Pulse ox was used with oxygen saturations in the upper 90s for the whole procedure. (The following sections must be completed) Post-Sedation Vital Signs: [Heart rate 58, pulse ox 96%, blood pressure 153/82 with rest rate at 16 done at 2:09 AM] Post-Sedation Exam: [Alert and oriented at baseline] Complications: none. Procedure note for shoulder relocation. After obtaining informed consent the patient was moderately sedated with propofol (see above). The patient's anterior left shoulder dislocation was then relocated with traction countertraction. Postreduction x-rays revealed successful reduction. Patient was placed in shoulder immobilizer. Patient examined after shoulder immobilizer applied. Neurovascularly intact distally no deltoid anesthesia. 79-year-old female with a syncopal event resulting in a left shoulder disl ocation. The shoulder was successfully reduced by me. Patient recovered from anesthesia without any complications. Patient bradycardic in the ER only placed in observation for further evaluation. Patient did not have a head strike or loss of consciousness. Doubt intracranial hemorrhage or traumatic brain injury I discussed the case with Dr. Dia who will admit. Lenore Disclaimer: Lenore Disclaimer: This electronic medical record was generated, in whole or in part, using a voice recognition dictation system. Departure Departure Impression: Primary Impression: SYNCOPE AND COLLAPSE Additional Impression: Closed anterior dislocation of left shoulder Disposition: ADMITTED INPATIENT Admitting Physician: Suresh Dia Condition: STABLE Referrals: ENRIKE FERGUSON MD (PCP) Justicifation of Admission Dx: Justifications for Admission: Justification of Admission Dx: Yes JENNIFER SANTANA MD Oct 12, 2019 00:43
[2019-10-12 01:03] LABS: BASO # 0.1 x10^3/uL (0.0-0.2); BASO % 1 % (0-3); EOS # 0.3 x10^3/uL (0.0-0.7); EOS % 3 % (0-3); HEMATOCRIT 33.5 % (36.0-47.0); HEMOGLOBIN 11.1 g/dL (12.0-15.5); LYMPH # 2.6 x10^3/uL (1.0-4.8); LYMPH % 23 % (24-48); MEAN CORPUSCULAR HEMOGLOBIN 28 pg (25-35); MEAN CORPUSCULAR HGB CONC 33 g/dL (31-37); MEAN CORPUSCULAR VOLUME 85 fL (79-100); MONO # 0.7 x10^3/uL (0.0-1.1); MONO % 6 % (0-9); NEUT # 7.8 x10^3/uL (1.8-7.7); NEUT % 68 % (31-73); PLATELET COUNT 334 x10^3/uL (140-400); RED BLOOD COUNT 3.93 x10^6/uL (3.50-5.40); RED CELL DISTRIBUTION WIDTH 15.5 % (11.5-14.5); WHITE BLOOD COUNT 11.5 x10^3/uL (4.0-11.0)
--- NOTE | 2019-10-12 01:12 | RAD ---
INDICATION: Reason: fall / Spl. Instructions: / History: COMPARISON: None. IMPRESSION: Left shoulder: 2 views obtained. Anterior inferior shoulder dislocation is identified. Electronically signed by: Eric Wells MD (10/12/2019 1:10 AM) [id number]
--- NOTE | 2019-10-12 01:12 | RAD ---
INDICATION: Reason: fall / Spl. Instructions: / History: COMPARISON: September 2018 FINDINGS: Single view of chest obtained. Left shoulder dislocation. Enlarged cardiomediastinal silhouette. Degenerative changes the spine. Coarsened interstitial markings bilaterally with hyperexpansion again seen. IMPRESSION: * Anterior left shoulder dislocation. * Hyperexpanded lungs with prominent interstitial markings. Would correlate for possible causes such as asthma or emphysema. Electronically signed by: Eric Wells MD (10/12/2019 1:09 AM) [email or web address]
[2019-10-12 01:13] LABS: PROTHROMBIN TIME PATIENT 13.2 SEC (11.7-14.0)
[2019-10-12 01:14] LABS: CALCIUM 9.6 mg/dL (8.5-10.1); CREATININE 1.8 mg/dL (0.6-1.0); GFR 27.2; POTASSIUM 4.9 mmol/L (3.5-5.1)
[2019-10-12 01:21] LABS: ALBUMIN 3.5 g/dL (3.4-5.0); ALBUMIN/GLOBULIN RATIO 0.9 (1.0-1.7); TOTAL BILIRUBIN 0.3 mg/dL (0.2-1.0); TOTAL PROTEIN 7.4 g/dL (6.4-8.2)
[2019-10-12] MEDS ORDERED: ONDANSETRON PF 4 MG/2 ML VIAL. ONE (01:54)
[2019-10-12] MEDS ORDERED: PROPOFOL 10 MG/ML (20ML) VIAL. IV ONE (02:00)
[2019-10-12] MEDS ORDERED: ONDANSETRON PF 4 MG/2 ML VIAL. IV PRN (02:45)
[2019-10-12] MEDS ORDERED: ONDANSETRON PF 4 MG/2 ML VIAL. IVP ONE (03:00)
--- NOTE | 2019-10-12 03:03 | RAD ---
INDICATION: Reason: post reduction / Spl. Instructions: / History: COMPARISON: Earlier same day IMPRESSION: Left shoulder: 2 views obtained. Improved alignment status post reduction of previously identified left shoulder dislocation. Electronically signed by: Eric Wells MD (10/12/2019 3:00 AM) [email or web address]
[2019-10-12] MEDS ORDERED: CARV6.253 PO (04:07)
[2019-10-12] MEDS ORDERED: ATOR40TA59 PO (04:07)
[2019-10-12] MEDS ORDERED: FLUO40CA2 PO (04:07)
[2019-10-12] MEDS ORDERED: ALLO100T PO (04:07)
[2019-10-12] MEDS ORDERED: METO25TA4 PO (04:07)
[2019-10-12] MEDS: ALLOPURINOL 100 MG TABLET. PO SCH (09:00)
[2019-10-12] MEDS ORDERED: CARVEDILOL 6.25 MG TABLET. PO SCH (09:00)
[2019-10-12] MEDS ORDERED: INSULIN GLARGINE SYRINGE. SQ SCH (09:00)
[2019-10-12] MEDS ORDERED: amLODIPine BESYLATE 10 MG TABLET PO SCH (09:00)
--- NOTE | 2019-10-12 09:06 | PDOC ---
Provider Note Provider Note [id number] Justicifation of Admission Dx: Justifications for Admission: Justification of Admission Dx: Yes FRANK DIA MD Oct 12, 2019 09:06
--- NOTE | 2019-10-12 09:51 | HP ---
ADMIT DATE: 10/12/2019 CHIEF COMPLAINT: Syncope and she dislocated shoulder. HISTORY OF PRESENT ILLNESS: A 79-year-old white female with history of hypertension, CKD 4 and insulin-dependent diabetes, was last seen in our office by Dr. Masters in May of this year. A1c at that time was 7.7 and because of CKD4, she was sent to a [facility] and has seen a doctor, but does not recall the name. She was referred to a new charrer, Dr. Anderson, because of a history of mitral regurgitation, but she does not recall seeing that doctor. Yesterday, she had sudden onset of what appeared to be a syncopal episode, fell and dislocated her shoulder, which required relocation in the ER and she is in a splint on the monitor now. She is not completely sure of her home meds, but the office record states that she is taking carvedilol in place of metoprolol because of previous bradycardia. She denies that she is taking both medications. She denies any recent exertional dyspnea or chest pain or other suspicious symptoms. PAST MEDICAL HISTORY: She has had a prior nephrectomy for renal cell cancer, year unknown. ALLERGIES: No allergies. MEDICATIONS: Listed per the chart otherwise. SOCIAL HISTORY: She is single, not employed, nonsmoker, nondrinker. FAMILY HISTORY: Unremarkable. REVIEW OF SYSTEMS: Unremarkable. OBJECTIVE: ENT: All within normal limits. NECK: No bruits, nodes, or masses. LUNGS: Clear, without tachypnea. CARDIOVASCULAR: Regular rate, rate is about 60. No overt murmurs heard, but hard to tell with large dressings on the left chest in place. ABDOMEN: Soft, benign and nontender. EXTREMITIES: Reasonably good pedal pulses. No edema. The left arm is in a large shoulder splint, but abnormal. NEUROLOGIC: Physiologic and nonfocal. ASSESSMENT: 1. Syncope and secondary dislocation on her left shoulder. Etiology unclear, but may be secondary to her bradycardia, perhaps aggravated by carvedilol. 2. Chronic kidney disease 4, stable. 3. History of prior nephrectomy for renal cell cancer. 4. Insulin-dependent diabetes, reasonably well controlled. PLAN: We will discontinue carvedilol at this time. Continue same meds. Ranjit her both a renal sonogram and an echocardiogram and check her TSH. Orthopedic consultation as well has been obtained. FRANK DIA MD DR: GRACE/sherly JOB#: [id number] / [id number]
--- NOTE | 2019-10-12 11:21 | NUR ---
SS following for discharge planning. SS reviewed pt chart and discussed with pt RN. Pt is from home and is currently on room air. SS will continue to follow for discharge planning.
--- NOTE | 2019-10-12 11:49 | PDOC2 ---
TACOS CAMARENA PHYSICAL CHEMISTRY TEACHER 10/12/19 1149: CARDIAC CONSULT DATE OF CONSULT Date of Consult DATE: 10/12/19 TIME: 11:34 REASON FOR CONSULT Reason for Consult: Syncope REFERRING PHYSICIAN Referring Physician: Ema SOURCE Source: Chart review, Patient HISTORY OF PRESENT ILLNESS HISTORY OF PRESENT ILLNESS This is a pleasant 79 yo female admitted for complains of passing out and left shoulder pain. Pt was doing weeding ouside yesterday afternoon. No symptoms with this activity. She ate breakfast and lunch but did not eat dinner. She did quite some exertion that afternoon appropriately hydrating self. She took her long acting insulin that day. She was at the bathroom and after defecating she stood up and starting getting dizzy, also diaphoretic but denies having palpitations and could not remember feeling flushed but her vision got blurry like curtain was coming down. No SOA or chest pain at that time. The last time she had syncopal episode was about 9 months ago. She then passed out and dislocated her left shooulder which was closed reduced in ED. sling is now in place and pain is controlled. It is not clear if she takes 2 BB and she is having someone bring allher med bottles from home. No BURT or exertional CP. She was supposed to have a LINQ a while back but did not happen as she had to go to [place] for her sister noted health issue. No issues with fever, chills, cough, nausea, vomiting or diarrhea. No hx of arrhythmias, CAD or VTE. PAST MEDICAL HISTORY Cardiovascular: HTN, Syncope, Hyperlipidemia Heme/Onc: Cancer (cervical) Psych: Anxiety Musculoskeletal: Osteoarthritis Rheumatologic: Gout Renal/: Chronic renal insuff (stage 4) Endocrine: Diabetes (2) PAST SURGICAL HISTORY Past Surgical History: Appendectomy, Tonsillectomy, Hysterectomy, Other (right nehrectomy) FAMILY HISTORY Family History noncontributory SOCIAL HISTORY Smoke: No ALCOHOL: none Drugs: None Lives: with Family CURRENT MEDICATIONS CURRENT MEDICATIONS Current Medications Medications (Trade) Dose Ordered Sig/Efra Route PRN Reason Start Time Stop Time Status Last Admin Dose Admin Propofol (Diprivan) 200 mg 1X ONCE IV 10/12/19 02:00 10/12/19 02:01 DC 10/12/19 01:58 Ondansetron HCl (Zofran) 4 mg 1X ONCE IVP 10/12/19 03:00 10/12/19 03:01 DC 10/12/19 01:55 ALLERGIES ALLERGIES: Coded Allergies: No Known Drug Allergies (Unverified , 11/23/17) ROS Review of System 14 point ROS evaluated with pertinent positives noted per HPI PHYSICAL EXAM General: Alert, Oriented X3, Cooperative, No acute distress HEENT: Atraumatic, Mucous membr. moist/pink Lungs: Clear to auscultation, Normal air movement Heart: Regular rate (SR/SB), Normal S1, Normal S2, No murmurs Abdomen: Soft, No tenderness Extremities: No cyanosis, No edema Skin: No breakdown, No significant lesion Neuro: Normal speech, Sensation intact Psych/Mental Status: Mental status NL, Mood NL MUSCULOSKELETAL: Osteoarthritic changes both hands VITALS/I&O VITALS/I&O: Vital Signs Date Time Temp Pulse Resp B/P (MAP) Pulse Ox O2 Delivery O2 Flow Rate FiO2 10/12/19 10:56 98.0 66 22 163/78 (106) 98 Room Air 98.0 10/12/19 01:55 4.0 4.0 I & O 10/11/19 10/11/19 10/12/19 15:00 23:00 07:00 Output Total 0 ml Balance 0 ml LABS Lab: Laboratory Tests Test 10/12/19 00:50 10/12/19 07:45 White Blood Count 11.5 x10^3/uL (4.0-11.0) H Red Blood Count 3.93 x10^6/uL (3.50-5.40) Hemoglobin 11.1 g/dL (12.0-15.5) L Hematocrit 33.5 % (36.0-47.0) L Mean Corpuscular Volume 85 fL (79-100) Mean Corpuscular Hemoglobin 28 pg (25-35) Mean Corpuscular Hemoglobin Concent 33 g/dL (31-37) Red Cell Distribution Width 15.5 % (11.5-14.5) H Platelet Count 334 x10^3/uL (140-400) Neutrophils (%) (Auto) 68 % (31-73) Lymphocytes (%) (Auto) 23 % (24-48) L Monocytes (%) (Auto) 6 % (0-9) Eosinophils (%) (Auto) 3 % (0-3) Basophils (%) (Auto) 1 % (0-3) Neutrophils # (Auto) 7.8 x10^3/uL (1.8-7.7) H Lymphocytes # (Auto) 2.6 x10^3/uL (1.0-4.8) Monocytes # (Auto) 0.7 x10^3/uL (0.0-1.1) Eosinophils # (Auto) 0.3 x10^3/uL (0.0-0.7) Basophils # (Auto) 0.1 x10^3/uL (0.0-0.2) Prothrombin Time 13.2 SEC (11.7-14.0) Prothrombin Time INR 1.0 (0.8-1.1) Activated Partial Thromboplast Time 27 SEC (24-38) Sodium Level 141 mmol/L (136-145) Potassium Level 4.9 mmol/L (3.5-5.1) Chloride Level 105 mmol/L (98-107) Carbon Dioxide Level 29 mmol/L (21-32) Anion Gap 7 (6-14) Blood Urea Nitrogen 23 mg/dL (7-20) H Creatinine 1.8 mg/dL (0.6-1.0) H Estimated GFR (Cockcroft-Gault) 27.2 BUN/Creatinine Ratio 13 (6-20) Glucose Level 161 mg/dL (70-99) H Calcium Level 9.6 mg/dL (8.5-10.1) Total Bilirubin 0.3 mg/dL (0.2-1.0) Aspartate Amino Transferase (AST) 21 U/L (15-37) Alanine Aminotransferase (ALT) 20 U/L (14-59) Alkaline Phosphatase 74 U/L (46-116) Troponin I Quantitative < 0.017 ng/mL (0.000-0.055) < 0.017 ng/mL (0.000-0.055) Total Protein 7.4 g/dL (6.4-8.2) Albumin 3.5 g/dL (3.4-5.0) Albumin/Globulin Ratio 0.9 (1.0-1.7) L Thyroid Stimulating Hormone (TSH) 1.107 uIU/mL (0.358-3.74) Laboratory Tests 10/12/19 00:50 Laboratory Tests 10/12/19 00:50 ASSESSMENT/PLAN ASSESSMENT/PLAN 1. Syncope with traumatic mechanical fall: possible hypoglycemic reaction vs vasovagal episode 2. Right shoulder dislocations: S/P closed reduction per PCP 3. HTN; controlled 4. HLP 5. DM2: on long acting insulin 6. CKD4 with hx of nephrectomy 6. sinus bradycardia: no pauses lowest in the upper 40s. SR otherwise Recommendations 1. Will review home meds when bottles are brought from to ascertain that she is not taking 2 BB that may also contribute to her syncope. Doubt this is arrhythmia related. 2. Strong suspicion of hypoglycemia given that she skipped dinner after heavy exertion prior to her syncope with associated use of insulin. Dietitian consult 3. Continue with secondary prevention measures. 4. Will check orthostatic readings TTE MANNY PERALTA MD 10/12/19 2006: CARDIAC CONSULT ASSESSMENT/PLAN ASSESSMENT/PLAN Patient seen and examined. Agree with PRODUCTION HAND's assessment and plan. Recurrent syncope of uncertain etiology Tele did not show any arrhythmias so far 2D echo showed normal LVF Orthostatics positive. Will bolus with 500 cc NS Consider outpatient event monitor recording Thank you for your consultation TACOS CAMARENA APRN Oct 12, 2019 11:49 MANNY PERALTA MD Oct 12, 2019 20:06
[2019-10-12] MEDS: FLUoxetine HCL 20 MG CAPSULE PO SCH (12:09)
[2019-10-12] MEDS: ATORVASTATIN CALCIUM 40 MG TABLET. PO SCH (12:10)
--- NOTE | 2019-10-12 13:23 | RAD ---
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 Instructions: / History: Comparison: None. Procedure: Transabdominal ultrasound images are obtained of the kidneys and bladder. Findings: Prior right nephrectomy. Left kidney: measures 4.1 x 5.5 x 6.0 cm. Left mid renal cyst measures 1.9 x 2.1 x 1.6 cm and medial cyst measures 1.7 x 1.3 x 1.0 cm. No hydronephrosis. Urinary bladder: No urinary bladder wall thickening. The IVC is normal caliber. The visualized abdominal aorta is normal caliber. IMPRESSION: 1. Prior right nephrectomy. 2. Left renal cysts. No follow-up imaging is recommended per consensus recommendations based on imaging criteria. Electronically signed by: Fer He DO (10/12/2019 1:20 PM) [id number]
--- NOTE | 2019-10-12 14:28 | EKG ---
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
--- NOTE | 2019-10-12 16:11 | CARD ---
MR#: [id number] Date of Study: 10/12/2019 Ordering Physician: FRANK DIA, Referring Physician: FRANK DIA, Tech: Portia Moise APPROVED REPORT EXAM: Two-dimensional and M-mode echocardiogram with Doppler and color Doppler. Other Information Quality : FairHR: 56bpm Technically limited study due to Shoulder harness INDICATION Syncope 2D DIMENSIONS RVDd2.9 (2.9-3.5cm)Left Atrium(2D)2.5 (1.6-4.0cm) IVSd1.2 (0.7-1.1cm)Aortic Root(2D)2.7 (2.0-3.7cm) LVDd3.8 (3.9-5.9cm)LVOT Diameter2.0 (1.8-2.4cm) PWd1.1 (0.7-1.1cm)LVDs2.4 (2.5-4.0cm) FS (%) 36.1 %SV41.7 ml LVEF(%)66.5 (>50%) Aortic Valve AoV Peak Theron.193.4cm/sAoV VTI49.7cm AO Peak GR.15.0mmHgLVOT Peak Theron.97.8cm/s LVOT VTI 25.10cmAO Mean GR.9mmHg ALEKSANDER (VMAX)1.20bk2HDF (VTI)1.51cm2 Mitral Valve MV E Iarlouim04.5cm/sMV DECEL NXHH410ek MV A Ulmfjcxh80.3cm/sMV E Mean Gr.2mmHg MV NKQ76pzR/A Ratio0.9 MVA (PHT)3.36cm2 TDI E/Lateral E'8.9E/Medial E'9.6 Pulmonary Valve PV Peak Imwixdwz69.3cm/sPV Peak Grad.3mmHg Tricuspid Valve TR P. Vzsxngrl915ct/sRAP SVPRCABS5vbPz TR Peak Gr.32gkDrRJVD14yePg Pulmonary Vein S1 Ehimmpcp64.1cm/sD2 Lwihxloj63.4cm/s PVa yquwjjfv907sgmb LEFT VENTRICLE The left ventricle is normal size. There is borderline to mild concentric left ventricular hypertroph y. The left ventricular systolic function is normal. The Ejection Fraction is 55-60%. There is normal LV segmental wall motion. Transmitral Doppler flow pattern is Grade I-abnormal relaxation pattern. RIGHT VENTRICLE The right ventricle is normal size. There is normal right ventricular wall thickness. The right ventr icular systolic function is normal. ATRIA The left atrium size is normal. The right atrium size is normal. The interatrial septum is intact wit h no evidence for an atrial septal defect or patent foramen ovale as noted on 2-D or Doppler imaging. AORTIC VALVE The aortic valve is thickened but opens well. Doppler and Color Flow revealed trace aortic regurgitat ion. Calculated aortic valve area is 1.61 cm2 with maximum pressure gradient of 18 mmHg and mean pres sure gradient of 9 mmHg. There is no significant aortic valvular stenosis. MITRAL VALVE The mitral valve is normal in structure and function. There is no evidence of mitral valve prolapse. There is no mitral valve stenosis. Doppler and Color-flow revealed trace mitral regurgitation. TRICUSPID VALVE The tricuspid valve is normal in structure and function. Doppler and Color Flow revealed trace tricus pid regurgitation with an estimated PAP of 32 mmHg. There is no tricuspid valve stenosis. PULMONIC VALVE The pulmonic valve is not well visualized. Doppler and Color Flow revealed no pulmonic valvular regur gitation. GREAT VESSELS The aortic root is normal in size. The ascending aorta is normal in size. The IVC is normal in size a nd collapses >50% with inspiration. PERICARDIAL EFFUSION There is no evidence of significant pericardial effusion. Critical Notification Critical Value: No <Conclusion> The left ventricular systolic function is normal. The Ejection Fraction is 55-60%. There is normal LV segmental wall motion. Transmitral Doppler flow pattern is Grade I-abnormal relaxation pattern. Trace mitral regurgitation. Trace tricuspid regurgitation with an estimated PAP of 32 mmHg. There is no evidence of significant pericardial effusion. Signed by : Alan Oviedo, Electronically Approved : 10/12/2019 16:10:49
[2019-10-12] MEDS ORDERED: IV NORMAL SALINE 500ML BAG 500 ML IV ONE (17:15)
--- NOTE | 2019-10-12 18:20 | PDOC2 ---
CONSULT Date of Consult Date of Consult DATE: 10/12/19 TIME: 18:18 Reason for Consult Reason for Consult: Left shoulder dislocation Referring Physician Referring Physician: Russell Identification/Chief Complaint Chief Complaint Left shoulder pain Source Source: Chart review, Patient History of Present Illness Reason for Visit: 79-year-old woman admitted to the hospital after falling off of the toilet at home. Possible syncopal episode. She had a closed left shoulder dislocation that was reduced in the emergency room. She is in a shoulder immobilizer. She denies any numbness or weakness. She is feeling pretty well now other than some shoulder pain for which Percocet was helpful. She is right-handed. 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 She did not work there this year due to risks of COVID-19. She is essentially retired at this time. Past Medical History Cardiovascular: HTN, Syncope, Hyperlipidemia Heme/Onc: Cancer (cervical) Psych: Anxiety Musculoskeletal: Osteoarthritis Rheumatologic: Gout Renal/: Chronic renal insuff (stage 4) Endocrine: Diabetes (2) Past Surgical History Past Surgical History: Appendectomy, Tonsillectomy, Hysterectomy, Other (right nehrectomy) Social History No ALCOHOL: none Drugs: None Lives: with Family Current Problem List Problem List Problems Medical Problems: (1) Closed anterior dislocation of left shoulder Status: Acute (2) R55 Status: Acute Current Medications Current Medications Current Medications Propofol (Diprivan) 200 mg 1X ONCE IV Last administered on 10/12/19at 01:58; Start 10/12/19 at 02:00; Stop 10/12/19 at 02:01; Status DC Ondansetron HCl (Zofran) 4 mg STK-MED ONCE .ROUTE ; Start 10/12/19 at 01:54; Stop 10/12/19 at 01:54; Status DC Ondansetron HCl (Zofran) 4 mg 1X ONCE IVP Last administered on 10/12/19at 01:55; Start 10/12/19 at 03:00; Stop 10/12/19 at 03:01; Status DC Ondansetron HCl (Zofran) 4 mg PRN Q8HRS PRN IV NAUSEA/VOMITING 1ST CHOICE; Start 10/12/19 at 02:45; Stop 8/6/20 at 02:44 Allopurinol (Zyloprim) 100 mg DAILY PO ; Start 10/12/19 at 09:00 Amlodipine Besylate (Norvasc) 10 mg DAILY PO Last administered on 10/12/19at 12:16; Start 10/12/19 at 09:00 Atorvastatin Calcium (Lipitor) 40 mg DAILY PO Last administered on 10/12/19at 12:10; Start 10/12/19 at 09:00 Carvedilol (Coreg) 6.25 mg BID92 PO ; Start 10/12/19 at 09:00; Stop 10/12/19 at 09:03; Status DC Fluoxetine HCl (PROzac) 40 mg DAILY PO Last administered on 10/12/19at 12:09; Start 10/12/19 at 09:00 Insulin Glargine (Lantus Syringe) 35 unit DAILY SQ Last administered on 10/12/19at 12:19; Start 10/12/19 at 09:00 Sodium Chloride 500 ml @ 500 mls/hr 1X ONCE IV ; Start 10/12/19 at 17:15; Stop 10/12/19 at 18:14; Status DC Acetaminophen/ Hydrocodone Bitart (Lortab 5/325) 1 tab PRN Q4HRS PRN PO PAIN; Start 10/12/19 at 18:15 Active Scripts Active Reported Allopurinol 100 Mg Tablet 100 Mg PO DAILY Metoprolol Tartrate 25 Mg Tablet 25 Mg PO BID Fluoxetine Hcl 40 Mg Capsule 40 Mg PO DAILY Carvedilol 6.25 Mg Tablet 6.25 Mg PO BID Atorvastatin Calcium 40 Mg Tablet 40 Mg PO DAILY Amlodipine Besylate 10 Mg Tablet 10 Mg PO DAILY Paige Douglassar (Insulin Glargine,Hum.rec.anlog) 300 Unit/1 Ml Insuln.pen 35 Unit SQ DAILY Allergies Allergies: Coded Allergies: No Known Drug Allergies (Unverified , 11/23/17) ROS Review of System Constitutional: Denies fever or chills. Eyes: Denies change in visual acuity. HENT: Denies nasal congestion or sore throat. Respiratory: Denies cough or shortness of breath. Cardiovascular: Denies chest pain or edema. GI: Denies abdominal pain, nausea, vomiting, bloody stools or diarrhea. : Denies dysuria. Musculoskeletal: Denies back pain but complains of left shoulder pain Integument: Denies rash. Neurologic: Denies headache, focal weakness or sensory changes. Endocrine: Denies polyuria or polydipsia. Lymphatic: Denies swollen glands. Psychiatric: Denies depression or anxiety. Physical Exam General: Alert, Cooperative HEENT: Atraumatic Lungs: Normal air movement Heart: Regular rate Abdomen: Soft Extremities: No cyanosis, Normal pulses, Other (The gross alignment of the left shoulder is normal without apparent recurrent or residual dislocation. The shoulder is immobilized with an immobilizer which was not removed for the exam. There is minimal swelling. The skin is intact. There is no cyanosis or ischemia of the upper extremity. Finger range of motion is present, with no evidence of radial ulnar or median nerve injury or any obvious brachial plexus injury. Light touch sensation in the axillary nerve distribution is intact. ) Skin: No breakdown, No significant lesion Neuro: Normal speech, Normal tone, Sensation intact Psych/Mental Status: Mood NL Vitals VITALS Vital Signs Date Time Temp Pulse Resp B/P (MAP) Pulse Ox O2 Delivery O2 Flow Rate FiO2 10/12/19 15:46 63 100/56 (71) 10/12/19 15:00 98.3 16 97 Room Air 4.0 98.3 Labs Labs Laboratory Tests Test 10/12/19 00:50 10/12/19 07:45 10/12/19 11:47 10/12/19 12:06 White Blood Count 11.5 x10^3/uL (4.0-11.0) Red Blood Count 3.93 x10^6/uL (3.50-5.40) Hemoglobin 11.1 g/dL (12.0-15.5) Hematocrit 33.5 % (36.0-47.0) Mean Corpuscular Volume 85 fL (79-100) Mean Corpuscular Hemoglobin 28 pg (25-35) Mean Corpuscular Hemoglobin Concent 33 g/dL (31-37) Red Cell Distribution Width 15.5 % (11.5-14.5) Platelet Count 334 x10^3/uL (140-400) Neutrophils (%) (Auto) 68 % (31-73) Lymphocytes (%) (Auto) 23 % (24-48) Monocytes (%) (Auto) 6 % (0-9) Eosinophils (%) (Auto) 3 % (0-3) Basophils (%) (Auto) 1 % (0-3) Neutrophils # (Auto) 7.8 x10^3/uL (1.8-7.7) Lymphocytes # (Auto) 2.6 x10^3/uL (1.0-4.8) Monocytes # (Auto) 0.7 x10^3/uL (0.0-1.1) Eosinophils # (Auto) 0.3 x10^3/uL (0.0-0.7) Basophils # (Auto) 0.1 x10^3/uL (0.0-0.2) Prothrombin Time 13.2 SEC (11.7-14.0) Prothromb Time International Ratio 1.0 (0.8-1.1) Activated Partial Thromboplast Time 27 SEC (24-38) Sodium Level 141 mmol/L (136-145) Potassium Level 4.9 mmol/L (3.5-5.1) Chloride Level 105 mmol/L (98-107) Carbon Dioxide Level 29 mmol/L (21-32) Anion Gap 7 (6-14) Blood Urea Nitrogen 23 mg/dL (7-20) Creatinine 1.8 mg/dL (0.6-1.0) Estimated GFR (Cockcroft-Gault) 27.2 BUN/Creatinine Ratio 13 (6-20) Glucose Level 161 mg/dL (70-99) Calcium Level 9.6 mg/dL (8.5-10.1) Total Bilirubin 0.3 mg/dL (0.2-1.0) Aspartate Amino Transf (AST/SGOT) 21 U/L (15-37) Alanine Aminotransferase (ALT/SGPT) 20 U/L (14-59) Alkaline Phosphatase 74 U/L (46-116) Troponin I Quantitative < 0.017 ng/mL (0.000-0.055) < 0.017 ng/mL (0.000-0.055) < 0.017 ng/mL (0.000-0.055) Total Protein 7.4 g/dL (6.4-8.2) Albumin 3.5 g/dL (3.4-5.0) Albumin/Globulin Ratio 0.9 (1.0-1.7) Thyroid Stimulating Hormone (TSH) 1.107 uIU/mL (0.358-3.74) Glucose (Fingerstick) 124 mg/dL (70-99) Test 10/12/19 16:46 Glucose (Fingerstick) 124 mg/dL (70-99) Laboratory Tests Test 10/12/19 00:50 10/12/19 07:45 10/12/19 11:47 10/12/19 12:06 White Blood Count 11.5 x10^3/uL (4.0-11.0) Red Blood Count 3.93 x10^6/uL (3.50-5.40) Hemoglobin 11.1 g/dL (12.0-15.5) Hematocrit 33.5 % (36.0-47.0) Mean Corpuscular Volume 85 fL (79-100) Mean Corpuscular Hemoglobin 28 pg (25-35) Mean Corpuscular Hemoglobin Concent 33 g/dL (31-37) Red Cell Distribution Width 15.5 % (11.5-14.5) Platelet Count 334 x10^3/uL (140-400) Neutrophils (%) (Auto) 68 % (31-73) Lymphocytes (%) (Auto) 23 % (24-48) Monocytes (%) (Auto) 6 % (0-9) Eosinophils (%) (Auto) 3 % (0-3) Basophils (%) (Auto) 1 % (0-3) Neutrophils # (Auto) 7.8 x10^3/uL (1.8-7.7) Lymphocytes # (Auto) 2.6 x10^3/uL (1.0-4.8) Monocytes # (Auto) 0.7 x10^3/uL (0.0-1.1) Eosinophils # (Auto) 0.3 x10^3/uL (0.0-0.7) Basophils # (Auto) 0.1 x10^3/uL (0.0-0.2) Prothrombin Time 13.2 SEC (11.7-14.0) Prothromb Time International Ratio 1.0 (0.8-1.1) Activated Partial Thromboplast Time 27 SEC (24-38) Sodium Level 141 mmol/L (136-145) Potassium Level 4.9 mmol/L (3.5-5.1) Chloride Level 105 mmol/L (98-107) Carbon Dioxide Level 29 mmol/L (21-32) Anion Gap 7 (6-14) Blood Urea Nitrogen 23 mg/dL (7-20) Creatinine 1.8 mg/dL (0.6-1.0) Estimated GFR (Cockcroft-Gault) 27.2 BUN/Creatinine Ratio 13 (6-20) Glucose Level 161 mg/dL (70-99) Calcium Level 9.6 mg/dL (8.5-10.1) Total Bilirubin 0.3 mg/dL (0.2-1.0) Aspartate Amino Transf (AST/SGOT) 21 U/L (15-37) Alanine Aminotransferase (ALT/SGPT) 20 U/L (14-59) Alkaline Phosphatase 74 U/L (46-116) Troponin I Quantitative < 0.017 ng/mL (0.000-0.055) < 0.017 ng/mL (0.000-0.055) < 0.017 ng/mL (0.000-0.055) Total Protein 7.4 g/dL (6.4-8.2) Albumin 3.5 g/dL (3.4-5.0) Albumin/Globulin Ratio 0.9 (1.0-1.7) Thyroid Stimulating Hormone (TSH) 1.107 uIU/mL (0.358-3.74) Glucose (Fingerstick) 124 mg/dL (70-99) Test 10/12/19 16:46 Glucose (Fingerstick) 124 mg/dL (70-99) Images Images Reports reviewed and images independently reviewed. Left shoulder anterior inferior dislocation was reduced. [facility] [address] [place] [address] IMAGING REPORT Signed PATIENT: MELO SALDIVAR ACCOUNT: [id number] : 1940 LOCATION: ER AGE: 79 SEX: F EXAM STATUS: PRE ER ORD. PHYSICIAN: JENNIFER SANTANA MD REASON: fall PROCEDURE: SHOULDER 2+V LEFT INDICATION: Reason: fall / Spl. Instructions: / History: COMPARISON: None. IMPRESSION: Left shoulder: 2 views obtained. Anterior inferior shoulder dislocation is identified. Electronically signed by: Jarred Dia MD (10/12/2019 1:10 AM) [id number] DICTATED and SIGNED BY: JARRED DIA MD DATE: 10/12/19 0110 [facility] [address] [place] [address] IMAGING REPORT Signed PATIENT: MELO SALDIVAR ACCOUNT: [id number] : 1940 LOCATION: ER AGE: 79 SEX: F EXAM STATUS: REG ER ORD. PHYSICIAN: JENNIFER SANTANA MD REASON: post reduction PROCEDURE: SHOULDER 2+V LEFT INDICATION: Reason: post reduction / Spl. Instructions: / History: COMPARISON: Earlier same day IMPRESSION: Left shoulder: 2 views obtained. Improved alignment status post reduction of previously identified left shoulder dislocation. Electronically signed by: Jarred Dia MD (10/12/2019 3:00 AM) [id number] DICTATED and SIGNED BY: JARRED DIA MD DATE: 10/12/19 0300 Assessment/Plan Assessment/Plan Closed left anterior shoulder dislocation. S43.015A Shoulder has been reduced, and is immobilized. I will order an arm sling which will be more comfortable and easier for hygiene than the current shoulder immobilizer. Ice pack ordered. I instructed her on some wrist hand and elbow range of motion exercises to do at home. She will need an office follow-up in a couple of weeks, possibly some physical therapy at that time, and office follow- up to make sure she has not torn the rotator cuff. I would recommend she go home with Percocet for pain and continue ice and arm sling. JEREMI JEFFERS MD Oct 12, 2019 18:20
[2019-10-12] MEDS: HYDROcodone/APAP 5/325MG 1 TAB TABLET PO PRN (18:24)
[2019-10-12] MEDS ORDERED: HYDROcodone/APAP 5/325MG 1 TAB TABLET PO PRN (18:30)
[2019-10-13] VITALS (9 sets, daily range): BP systolic 117–158; BP diastolic 56–83
[2019-10-13] MEDS: HYDROcodone/APAP 5/325MG 1 TAB TABLET PO PRN ×2 (03:29→20:55)
--- NOTE | 2019-10-13 08:15 | PDOC ---
Provider Note Provider Note feels ok- pain ok w/ norco- still has sinus madhuri 46 off coreg > 24 hrs- bp lowish as well- will hold amlo and also reduce dose, no more BB- less lantus also- suspect her syncope was hypotensive, not hypoglycemia, as glucose in er was fine- tsh ok- will need snf as she is alone some of the time at home- note both echo and renal sono were good, ckd status stable Justicifation of Admission Dx: Justifications for Admission: Justification of Admission Dx: Yes FRANK DIA MD Oct 13, 2019 08:15
[2019-10-13] MEDS: ATORVASTATIN CALCIUM 40 MG TABLET. PO SCH (09:05)
[2019-10-13] MEDS: FLUoxetine HCL 20 MG CAPSULE PO SCH (09:05)
[2019-10-13] MEDS: ALLOPURINOL 100 MG TABLET. PO SCH (09:05)
[2019-10-13] MEDS: amLODIPine BESYLATE 5 MG TABLET PO SCH (09:05)
[2019-10-13 10:58] LABS: CREATININE 1.4 mg/dL (0.6-1.0); GFR 36.4; POTASSIUM 3.9 mmol/L (3.5-5.1)
--- NOTE | 2019-10-13 11:23 | NUR ---
SS following up with discharge planning. SS reviewed pt chart and discussed with pt RN. Dr. Wlels recommending fci unit. PT/OT ordered and pt was swabbed for COVID19. Pt currently on room air. SS met with pt and discussed discharge planning. Pt requesting to go to [facility], ; fax [phone]. SS currently awaiting PT/OT evaluations and COVID19 results. Pt will need insurance authorization for fci unit. SS will continue to follow for discharge planning.
--- NOTE | 2019-10-13 13:08 | PDOC ---
TACOS CAMARENA INDIVIDUAL PENSION ADVISER 10/13/19 1308: CARDIO Progress Notes Date and Time Date of Service 10/13/2019 Time of Evaluation 0830 Subjective Subjective: No Chest Pain, No shortness of breath, No Palpitations, Other (did not sleep well but left shoulder pain controlled) Vitals Vitals Vital Signs Date Time Temp Pulse Resp B/P (MAP) Pulse Ox O2 Delivery O2 Flow Rate FiO2 10/13/19 10:55 98.1 54 16 130/66 (87) 97 Room Air 98.1 10/12/19 18:24 4.0 Weight Weight [ ] Input and Output Intake and Output Intake and Output 10/13/19 07:00 Intake Total 675 ml Balance 675 ml Intake Oral 675 ml Laboratory Labs Laboratory Tests Test 10/12/19 16:46 10/12/19 18:08 10/12/19 20:39 10/13/19 07:45 Glucose (Fingerstick) 124 mg/dL (70-99) 129 mg/dL (70-99) 63 mg/dL (70-99) Troponin I Quantitative < 0.017 ng/mL (0.000-0.055) Test 10/13/19 10:00 10/13/19 11:50 Sodium Level 140 mmol/L (136-145) Potassium Level 3.9 mmol/L (3.5-5.1) Chloride Level 106 mmol/L (98-107) Carbon Dioxide Level 28 mmol/L (21-32) Anion Gap 6 (6-14) Blood Urea Nitrogen 27 mg/dL (7-20) Creatinine 1.4 mg/dL (0.6-1.0) Estimated GFR (Cockcroft-Gault) 36.4 Glucose Level 91 mg/dL (70-99) Calcium Level 9.0 mg/dL (8.5-10.1) Glucose (Fingerstick) 60 mg/dL (70-99) Physical Exam HEENT: Neck Supple W Full Motion Chest: Symmetric LUNGS: Clear to Auscultation Heart: RRR (SR/SB) Abdomen: Soft N/T Extremities: No Edema, No Calf Tenderness Neurology: alert, oriented, follow commands Other Exams Left arm on sling post closed reduction, Good neurovascular status Assessment Assessment 1. Syncope with traumatic mechanical fall: possible hypoglycemic reaction vs vasovagal episode. Doubt arrhythmia related. EF and WM nml 2. Right shoulder dislocations: S/P closed reduction per PCP 3. HTN; controlled 4. HLP 5. DM2: on long acting insulin. hypoglycemia this am. Defer to PCP 6. 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 Asymptomatic sinus bradycardia: no pauses lowest in the upper 40s. SR otherwise. Verified using metopr and coreg. at home 8. Orthostasis: due to low volume, none further after repletion Recommendations 1. DC home coreg and may discontinue metoprolol as well unless any significant indication and could titrate up home norvasc per BP trend. 2. Strong suspicion of hypoglycemia given that she skipped dinner after heavy exertion prior to her syncope with associated use of insulin. Dietitian consult 3. Continue with secondary prevention measures. 4. Follow up in office. Justicifation of Admission Dx: Justifications for Admission: Justification of Admission Dx: Yes MANNY PERALTA MD 10/13/19 7399: CARDIO Progress Notes Assessment Assessment Patient seen and examined. Agree with ICE DELIVERY DRIVER's assessment and plan. Recurrent syncope of uncertain etiology Tele did not show any arrhythmias so far 2D echo showed normal LVF Patient received intravenous fluid bolus for orthostasis yesterday Consider outpatient event monitor recording TACOS CAMARENA APRN Oct 13, 2019 13:08 MANNY PERALTA MD Oct 13, 2019 17:19
--- NOTE | 2019-10-13 13:27 | NUR ---
SS following up with discharge planning. PT/OT recommended home. SS will continue to follow for discharge planning.
[2019-10-13] MEDS: INSULIN GLARGINE SYRINGE. SQ SCH (21:01)
[2019-10-14 03:00] VITALS: BP 147/67
[2019-10-14 07:00] VITALS: BP 126/74
--- NOTE | 2019-10-14 08:46 | PDOC ---
Provider Note Provider Note FEELS BETTER , no new sxs- bp better, rate better off bb- gfr also better ,maybe from hypotensive atn- will repeat in am, likely dc then Justicifation of Admission Dx: Justifications for Admission: Justification of Admission Dx: Yes FRANK DIA MD Oct 14, 2019 08:46
[2019-10-14] MEDS: FLUoxetine HCL 20 MG CAPSULE PO SCH (09:15)
[2019-10-14] MEDS: ATORVASTATIN CALCIUM 40 MG TABLET. PO SCH (09:15)
[2019-10-14] MEDS: ALLOPURINOL 100 MG TABLET. PO SCH (09:15)
[2019-10-14] MEDS: amLODIPine BESYLATE 5 MG TABLET PO SCH (09:15)
[2019-10-14 11:00] VITALS: BP 139/68
--- NOTE | 2019-10-14 11:30 | NUR ---
SS following up with discharge planning. SS reviewed pt chart and discussed with pt RN. Pt is currently on room air. PT/OT recommended home. Per, Dr. Wells, discharge to home tomorrow. SS will continue to follow for discharge planning.
[2019-10-14 14:52] VITALS: BP 132/69
[2019-10-14] MEDS ORDERED: DIPHENHYDRAMINE/ZINC ACETATE 2%/0.1% TOPICAL CREAM 28GM TUBE. TP ONE (18:15)
[2019-10-14 19:35] VITALS: BP 170/78
[2019-10-14] MEDS: INSULIN GLARGINE SYRINGE. SQ SCH (21:16)
[2019-10-14 22:50] VITALS: BP 171/74
[2019-10-15 03:15] VITALS: BP 152/72
[2019-10-15 05:01] LABS: CREATININE 1.3 mg/dL (0.6-1.0); GFR 39.6; POTASSIUM 3.8 mmol/L (3.5-5.1)
[2019-10-15 07:00] VITALS: BP 155/70
[2019-10-15] MEDS: FLUoxetine HCL 20 MG CAPSULE PO SCH (09:33)
[2019-10-15] MEDS: ALLOPURINOL 100 MG TABLET. PO SCH (09:34)
[2019-10-15] MEDS: ATORVASTATIN CALCIUM 40 MG TABLET. PO SCH (09:34)
[2019-10-15] MEDS: amLODIPine BESYLATE 5 MG TABLET PO SCH (09:34)
[2019-10-15 10:35] VITALS: BP 157/78
--- NOTE | 2019-10-15 13:00 | PDOC ---
Provider Note Provider Note [id number] Justicifation of Admission Dx: Justifications for Admission: Justification of Admission Dx: Yes FRANK DIA MD Oct 15, 2019 13:00
--- NOTE | 2019-10-15 13:42 | DS ---
DATE OF DISCHARGE: 10/15/2019 DATE OF DISCHARGE: 10/15/2019. HOSPITAL SUMMARY: A 79-year-old white female who had what presumed to be a syncopal episode at home, fell and dislocated her left shoulder. This was relocated in the Emergency Room. X-ray showed no sign of any fracture post-reduction. Chest x-ray was clear. Sonogram of the remaining kidney showed left mid renal cyst x 2, but no other anatomic lesions. CBC was unremarkable. Creatinine was 1.8, GFR 27 on admission, but after carvedilol was stopped because of mild bradycardia, creatinine down to 1.4, GFR up to 36 at discharge with normal potassium. TSH was normal. Cardiac enzymes x 3 normal. COVID test was negative. Echocardiogram showed an excellent ejection fraction of 55% with no valvular lesions. She was on the monitor and she had mild bradycardia, but never severe bradycardia and this resolved, off the carvedilol, she was taking at home. Blood pressure was mildly low on admission, but came up to normal taking amlodipine only and there is no need for pacer. As her renal functions improved and she is otherwise stable, she will be discharged and follow as an outpatient. FINAL DIAGNOSES: 1. Syncope secondary to drug-induced hypotension. 2. Anterior shoulder dislocation secondary to syncope. 3. Chronic kidney disease 3, improved from chronic kidney disease 4. 4. 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 OPERATIONS, PROCEDURES, COMPLICATIONS: None. CONSULTATIONS: Dr. Cosme, Dr. Anderson. DISPOSITION: She will stay off carvedilol and any beta blockers. Amlodipine will continue at 10 mg for now and possibly lower dose later. Lantus dose remains the same. Other home meds remain the same and office followup with Dr. Masters in 1 week will be arranged. She will take [place] 5/325 for shoulder pain. We will see Dr. Cosme and 2 weeks about the shoulder that is in a sling at this point. There is no need for Nephrology consultation as her renal function appears to be improving with less blood pressure medication, but she has only one remaining kidney after nephrectomy in the past. PROGNOSIS: Good. FRANK DIA MD DR: GRACE/sherly JOB#: [id number] / [id number]
[2019-10-15] MEDS ORDERED: NEOMY/BACITR/POLYMYXIN OINT PACKET. TP ONE (14:15)
[2019-10-15 14:38] VITALS: BP 129/75
--- NOTE | 2019-10-15 15:15 | NUR ---
Discharge Note: MELO SALDIVAR [facility] Discharge instructions and discharge home medications reviewed with Patient and a copy given. All questions have been answered and understanding verbalized. The following instructions and handouts were given: shoulder dislocation info, cardiac event monitor info, syncope info, discharge instructions, follow ups, new medication info. Discontinued lines and drains: Peripheral IV intact. Patient discharged to Home or Self Care with Family Member via Wheelchair at 1515.
== END 2019-10-15 15:15 | disposition home or self-care (01) | DRG 562 ==
LOC: ER 00:34 → 2 NORTH 02:33 → OBSVTOIN 08:56 → 2 NORTH 12:55 → 2 SOUTH 10-14 16:04
PROVIDERS: ADMIT Family Medicine; ATTEND Family Medicine
PROC: 0RSKXZZ Reposition Left Shoulder Joint, External Approach (ICD-10-PCS; principal; 2019-10-12)
DX: S43.015A Anterior dislocation of left humerus, initial encounter (principal); N17.0 Acute kidney failure with tubular necrosis; N18.4 Chronic kidney disease, stage 4 (severe); I95.2 Hypotension due to drugs; E11.22 Type 2 diabetes mellitus with diabetic chronic kidney disease; E11.649 Type 2 diabetes mellitus with hypoglycemia without coma; E78.5 Hyperlipidemia, unspecified; I12.9 Hypertensive chronic kidney disease with stage 1 through stage 4 chronic kidney disease, or unspecified chronic kidney disease; I34.0 Nonrheumatic mitral (valve) insufficiency; Z79.4 Long term (current) use of insulin; Z85.528 Personal history of other malignant neoplasm of kidney; Z90.49 Acquired absence of other specified parts of digestive tract; Z90.5 Acquired absence of kidney; Z90.710 Acquired absence of both cervix and uterus; F41.9 Anxiety disorder, unspecified; M10.9 Gout, unspecified; M19.90 Unspecified osteoarthritis, unspecified site; Z20.828 Contact with and (suspected) exposure to other viral communicable diseases; W18.39XA Other fall on same level, initial encounter; Y93.89 Activity, other specified; Y92.89 Other specified places as the place of occurrence of the external cause; Y99.8 Other external cause status; T50.905A Adverse effect of unspecified drugs, medicaments and biological substances, initial encounter
CPT/HCPCS: 23650; 36415; 71045; 73030; 76770; 80048; 80053; 82962; 84443; 84484; 85025; 85610; 85730; 93005; 93306; 96374; 99285; G0378; G0379; J1815; J2405; J2704; J7040; 97110-GP; 97535-GO; A4565; U0003-CS

== ENCOUNTER → 2020-02-27 | Outpatient (CLI) | payer BC ==
[~2020-02-27] MED LIST changes: +ALLO100T PO; +AMLO-187 PO; -AMLO10TA8 PO; +ATOR40TA59 PO; +CARV6.253 PO; +FLUO40CA2 PO; +METO25TA4 PO
[2020-02-27 10:23] LABS: BASO % 1 % (0-3); EOS # 0.4 x10^3/uL (0.0-0.7); EOS % 5 % (0-3); HEMATOCRIT 35.2 % (36.0-47.0); HEMOGLOBIN 12.1 g/dL (12.0-15.5); LYMPH # 2.4 x10^3/uL (1.0-4.8); LYMPH % 29 % (24-48); MEAN CORPUSCULAR HEMOGLOBIN 29 pg (25-35); MEAN CORPUSCULAR HGB CONC 34 g/dL (31-37); MEAN CORPUSCULAR VOLUME 85 fL (79-100); MONO # 0.6 x10^3/uL (0.0-1.1); MONO % 8 % (0-9); NEUT # 4.7 x10^3/uL (1.8-7.7); NEUT % 58 % (31-73); PLATELET COUNT 330 x10^3/uL (140-400); RED BLOOD COUNT 4.14 x10^6/uL (3.50-5.40); RED CELL DISTRIBUTION WIDTH 13.7 % (11.5-14.5)
[2020-02-27 10:27] LABS: BILIRUBIN,URINE NEGATIVE (NEG); CLARITY,URINE CLOUDY; COLOR,URINE YELLOW; NITRITE,URINE POSITIVE (NEG); PH,URINE 6.5 (<5.0-8.0); PROTEIN,URINE 100 mg/dL (NEG-TRACE); UROBILINOGEN,URINE 0.2 mg/dL (0.2 mg/dL)
[2020-02-27 10:30] LABS: CREATININE,RANDOM URINE 75.1 mg/dL (Not Establ.)
[2020-02-27 10:40] LABS: BACTERIA,URINE MANY /HPF (0-FEW); RBC,URINE 0 /HPF (0-2)
[2020-02-27 10:51] LABS: ALBUMIN 3.5 g/dL (3.4-5.0); ALBUMIN/GLOBULIN RATIO 0.9 (1.0-1.7); CALCIUM 9.5 mg/dL (8.5-10.1); CREATININE 1.3 mg/dL (0.6-1.0); GFR 39.6; PHOSPHORUS 3.2 mg/dL (2.6-4.7); POTASSIUM 4.2 mmol/L (3.5-5.1); TOTAL BILIRUBIN 0.3 mg/dL (0.2-1.0); TOTAL PROTEIN 7.2 g/dL (6.4-8.2)
[2020-02-28 00:07] LABS: CALCIUM PTH 9.8 mg/dL (8.7-10.3); CREATININE PTH 1.38 mg/dL (0.57-1.00); PHOSPHORUS PTH 3.5 mg/dL (3.0-4.3); PTH INTACT 77 pg/mL (15-65)
== END ==
LOC: LAB 09:43
PROVIDERS: ATTEND Internal Medicine Nephrology
DX: N18.30 Chronic kidney disease, stage 3 unspecified (principal)
CPT/HCPCS: 80053; 80061; 81001; 82570; 83735; 83970; 84100; 84156; 84165; 85025; 86038; 87086

== ENCOUNTER → 2020-03-16 | Outpatient (CLI) | payer BC, MEDICARE ==
[~2020-03-16] MED LIST changes: +COLC0.6T45 PO; +INSU100I13 SQ
--- NOTE | 2020-03-16 16:35 | RAD ---
EXAM: Renal sonogram. HISTORY: Renal insufficiency. TECHNIQUE: Sonographic imaging of the left kidney and bladder was performed. COMPARISON: 10/12/2019. FINDINGS: The right kidney is surgically absent. The left kidney is normal in size. There are multipl e simple appearing left renal cysts, the largest of which measures 2.0 cm. There is a complicated cys t or solid lesion within the upper pole the left kidney measuring 1.2 cm. There is no hydronephrosis. The bladder is unremarkable. IMPRESSION: 1. Surgically absent right kidney. 2. Multiple simple appearing left renal cysts. There is a superimposed 1.2 cm hypoechoic lesion withi n the upper pole the left kidney which may be a complicated cyst or solid lesion. This is more conspi cuous compared to the prior exam. This can be better characterized with a renal protocol CT or MRI. Electronically signed by: Shyanne Erickson MD (03/16/2020 4:29 PM) [id number]
== END ==
LOC: US 15:14
PROVIDERS: ATTEND Internal Medicine Nephrology
DX: N18.30 Chronic kidney disease, stage 3 unspecified (principal); N28.1 Cyst of kidney, acquired; Z90.5 Acquired absence of kidney
CPT/HCPCS: 76770

== ENCOUNTER 2020-03-30 06:54 | Inpatient (IN) | payer BC, MEDICARE ==
[~2020-03-30] VITALS: Ht 165.1 cm; Wt 71.4 kg
[~2020-03-30 06:54] MED LIST changes: -COLC0.6T45 PO; -INSU100I13 SQ
[2020-03-30] MEDS ORDERED: ONDANSETRON PF 4 MG/2 ML VIAL. IVP ONE (07:15)
--- NOTE | 2020-03-30 07:31 | RAD ---
Study: XR CHEST 1V Indication: Chest pain. Comparison: 10/12/2019 Findings: Unchanged cardiomediastinal silhouette and parvez. No lobar consolidation or pneumothorax. Increased lung markings are not significantly different from the comparison. The right costophrenic angle is blunted but a similar appearance was present previous ly. Glenohumeral joint malalignment on the comparison is no longer evident. Impression: No acute radiographic abnormality of the chest. No significant change from 10/12/2019. Electronically signed by: BLAS LAGUNA MD (03/30/2020 7:29 AM) [id number]
[2020-03-30 07:33] LABS: BASO % 0 % (0-3); EOS % 0 % (0-3); HEMATOCRIT 35.4 % (36.0-47.0); HEMOGLOBIN 11.7 g/dL (12.0-15.5); LYMPH # 1.4 x10^3/uL (1.0-4.8); LYMPH % 12 % (24-48); MEAN CORPUSCULAR HEMOGLOBIN 28 pg (25-35); MEAN CORPUSCULAR HGB CONC 33 g/dL (31-37); MEAN CORPUSCULAR VOLUME 84 fL (79-100); MONO # 0.4 x10^3/uL (0.0-1.1); MONO % 4 % (0-9); NEUT # 10.4 x10^3/uL (1.8-7.7); NEUT % 85 % (31-73); PLATELET COUNT 337 x10^3/uL (140-400); RED CELL DISTRIBUTION WIDTH 14.1 % (11.5-14.5); WHITE BLOOD COUNT 12.3 x10^3/uL (4.0-11.0)
[2020-03-30 07:36] LABS: ALBUMIN 3.5 g/dL (3.4-5.0); ALBUMIN/GLOBULIN RATIO 0.9 (1.0-1.7); CALCIUM 9.8 mg/dL (8.5-10.1); CREATININE 1.4 mg/dL (0.6-1.0); GFR 36.3; MAGNESIUM 1.7 mg/dL (1.8-2.4); TOTAL BILIRUBIN 0.7 mg/dL (0.2-1.0); TOTAL PROTEIN 7.6 g/dL (6.4-8.2)
--- NOTE | 2020-03-30 07:40 | RAD ---
STUDY: CT head without contrast INDICATION: Headache. Hypertension. Syncope. COMPARISON: 11/23/2017 TECHNIQUE: Axial CT imaging through the head without the use of intravenous contrast. Sagittal and co rosa reformats were obtained. One or more of the following individualized dose reduction techniques were utilized for this examinat ion: 1. Automated exposure control 2. Adjustment of the mA and/or kV according to patient size 3. Use of iterative reconstruction technique. FINDINGS: No acute intracranial hemorrhage. Higuera-white matter differentiation is maintained. No localized mass effect, midline shift or hydrocephalus. Asymmetry of the lateral ventricles is no different from the prior. Patchy bihemispheric subcortical white matter hypoattenuation is redemonstrated. Subtle foci of low a ttenuation along the lentiform nuclei bilaterally were present previously. Intracranial calcific athe rosclerosis. Parenchymal volume loss. Intact calvarium. Normally aerated mastoid air cells, middle ears and visualized paranasal sinuses. IMPRESSION: 1. No acute intracranial abnormality by CT. 2. Chronic/senescent findings, as above, not significantly different from 11/23/2017. Electronically signed by: BLAS LAGUNA MD (03/30/2020 7:38 AM) [id number]
[2020-03-30 07:43] LABS: POTASSIUM 3.6 mmol/L (3.5-5.1)
--- NOTE | 2020-03-30 07:43 | PHYS DOC ---
Past Medical History Past Medical History: Cancer, Diabetes-Type II, Hypertension, Other Additional Past Medical Histor: syncopal episodes Past Surgical History: Appendectomy, Hysterectomy, Other Additional Past Surgical Histo: R KIDNEY REMOVED,EXP LAP Smoking Status: Never Smoker Alcohol Use: None Drug Use: None General Adult EDM: Chief Complaint: CHEST PAIN HPI: HPI: Patient is a 80 year old female who was brought here by EMS from home due to chest pain. Patient says she was sitting in the living room watching TV when she started having chest pain and feeling dizzy, she feels like she might pass out. So she called EMS who brought her here for evaluation. Patient feels nauseous, vomited multiple times. Patient also complained of abdominal pain in epigastric area, associated with nausea vomiting. Patient denies any cough or fever. Upon arrival to ER, patient did vomit multiple times with bilious content. Patient is also having a headache. Patient was found to be hypertensive. Patient did not take her medication today for her high blood pressure. Review of Systems: Review of Systems: Constitutional: Denies fever or chills. [] Eyes: Denies change in visual acuity. [] HENT: Denies nasal congestion or sore throat. [] Respiratory: Denies cough or shortness of breath. [] Cardiovascular: Positive for chest pain. GI: Positive for abdominal pain, nausea, vomiting,no bloody stools or diarrhea. [] : Denies dysuria. [] Musculoskeletal: Denies back pain or joint pain. [] Integument: Denies rash. [] Neurologic: Positive for headache, no focal weakness or sensory changes. [] Endocrine: Denies polyuria or polydipsia. [] Lymphatic: Denies swollen glands. [] Psychiatric: Denies depression or anxiety. [] Heart Score: HEART Score for Chest Pain: HEART Score for Chest Pain Response (Comments) Value History Moderately Suspicious 1 ECG Normal 0 Age > 65 2 Risk Factors 1 or 2 Risk Factors 1 Troponin < Normal Limit 0 Total 4 Risk Factors: Risk Factors: DM, Current or recent (<one month) smoker, HTN, HLP, family history of CAD, obesity. Risk Scores: Score 0 - 3: 2.5% MACE over next 6 weeks - Discharge Home Score 4 - 6: 20.3% MACE over next 6 weeks - Admit for Clinical Observation Score 7 - 10: 72.7% MACE over next 6 weeks - Early Invasive Strategies Current Medications: Current Medications Medications (Trade) Dose Ordered Sig/Efra Start Time Stop Time Status Last Admin Dose Admin Ondansetron HCl (Zofran) 4 mg 1X ONCE 03/30/20 07:15 03/30/20 07:16 DC Allergies: Allergies: Allergies Coded Allergies Type Severity Reaction Last Updated Verified No Known Drug Allergies 11/23/17 No Physical Exam: PE: Constitutional: Well developed, well nourished, no acute distress, non-toxic appearance. [] HENT: Normocephalic, atraumatic, bilateral external ears normal, oropharynx moist, no oral exudates, nose normal. [] Eyes: PERRLA, EOMI, conjunctiva normal, no discharge. [] Neck: Normal range of motion, no tenderness, supple, no stridor. [] Cardiovascular:Heart rate regular rhythm, SYSTOLIC murmur [] Lungs & Thorax: Bilateral breath sounds clear to auscultation [] Abdomen: Bowel sounds normal, soft, There is tenderness to palpation in RUQ AND RLQ area, no masses, no pulsatile masses. [] Skin: Warm, dry, no erythema, no rash. [] Back: No tenderness, no CVA tenderness. [] Extremities: No tenderness, no cyanosis, no clubbing, ROM intact, no edema. [] Neurologic: Alert and oriented X 3, normal motor function, normal sensory function, no focal deficits noted. [] Psychologic: Affect normal, judgement normal, mood normal. [] Current Patient Data: Labs: Laboratory Tests Test 03/30/20 07:00 Sodium Level Pending Potassium Level Pending Chloride Level Pending Carbon Dioxide Level 24 mmol/L (21-32) Anion Gap Pending Blood Urea Nitrogen 21 mg/dL (7-20) H Creatinine 1.4 mg/dL (0.6-1.0) H Estimated GFR (Cockcroft-Gault) 36.3 BUN/Creatinine Ratio 15 (6-20) Glucose Level 242 mg/dL (70-99) H Calcium Level 9.8 mg/dL (8.5-10.1) Magnesium Level 1.7 mg/dL (1.8-2.4) L Total Bilirubin 0.7 mg/dL (0.2-1.0) Aspartate Amino Transferase (AST) 16 U/L (15-37) Alanine Aminotransferase (ALT) 24 U/L (14-59) Alkaline Phosphatase 90 U/L (46-116) Troponin I Quantitative < 0.017 ng/mL (0.000-0.055) SD-Pik-U-Type Natriuretic Peptide 319 pg/mL (0-449) Total Protein 7.6 g/dL (6.4-8.2) Albumin 3.5 g/dL (3.4-5.0) Albumin/Globulin Ratio 0.9 (1.0-1.7) L Lipase 257 U/L (73-393) Laboratory Tests 03/30/20 07:00 Vital Signs: Vital Signs Date Time Temp Pulse Resp B/P (MAP) Pulse Ox O2 Delivery O2 Flow Rate FiO2 03/30/20 06:54 98.1 67 22 240/105 (150) 99 Room Air 98.1 EKG: EKG: EKG was done at 656, heart rate of 59 beats per minute, sinus rhythm, no ST segment elevation Radiology/Procedures: Radiology/Procedures: [facility] [address] [place] [address] IMAGING REPORT Signed PATIENT: MELO SALDIVAR ACCOUNT: [id number] : 1940 LOCATION: ER AGE: 80 SEX: F EXAM STATUS: REG ER ORD. PHYSICIAN: FERCHO GEE DO REASON: headache, hypertensive, syncope PROCEDURE: CT HEAD WO CONTRAST STUDY: CT head without contrast INDICATION: Headache. Hypertension. Syncope. COMPARISON: 11/23/2017 TECHNIQUE: Axial CT imaging through the head without the use of intravenous contrast. Sagittal and coronal reformats were obtained. One or more of the following individualized dose reduction techniques were utilized for this examination: 1. Automated exposure control 2. Adjustment of the mA and/or kV according to patient size 3. Use of iterative reconstruction technique. FINDINGS: No acute intracranial hemorrhage. Higuera-white matter differentiation is maintained. No localized mass effect, midline shift or hydrocephalus. Asymmetry of the lateral ventricles is no different from the prior. Patchy bihemispheric subcortical white matter hypoattenuation is redemonstrated. Subtle foci of low attenuation along the lentiform nuclei bilaterally were present previously. Intracranial calcific atherosclerosis. Parenchymal volume loss. Intact calvarium. Normally aerated mastoid air cells, middle ears and visualized paranasal sinuses. IMPRESSION: 1. No acute intracranial abnormality by CT. 2. Chronic/senescent findings, as above, not significantly different from 11/23/2017. Electronically signed by: BLAS LAGUNA MD (03/30/2020 7:38 AM) [id number] DICTATED and SIGNED BY: BLAS LAGUNA MD DATE: 03/30/20 [id number] [facility] [address] [place] [address] IMAGING REPORT Signed PATIENT: MELO SALDIVAR ACCOUNT: [id number] : 1940 LOCATION: ER AGE: 80 SEX: F EXAM STATUS: REG ER ORD. PHYSICIAN: FERCHO GEE DO REASON: ruq/epigastric pain PROCEDURE: ABDOMEN LTD Ultrasound of the right upper quadrant of the abdomen 03/30/2020 CLINICAL HISTORY: Right upper quadrant abdominal pain. Epigastric pain. Nausea and vomiting. TECHNIQUE: A real-time ultrasound examination of the right upper quadrant of the abdomen was performed. Multiple images were obtained. FINDINGS: Comparison is made to the patient's CT scan of the abdomen formed earlier today. The gallbladder is distended. Echogenic gallstones are seen within the dependent portions of the gallbladder. Mild gallbladder wall thickening is seen measuring 3 mm in thickness. These ultrasound findings are consistent with the CT findings of acute cholecystitis. The common bile duct measures 5 mm in diameter which is within normal limits. The liver is normal in size measuring 15.5 cm in length. No focal abnormality of the liver is seen. The visualized portions of the pancreas is within normal limits. The patient is post right nephrectomy. No free fluid is seen IMPRESSION: Findings are seen consistent with acute cholecystitis. Electronically signed by: Omi Beard MD (03/30/2020 10:12 AM) [id number] DICTATED and SIGNED BY: OMI BEARD MD DATE: 03/30/20 [id number] 0 Course & Med Decision Making: Course & Med Decision Making Pertinent Labs and Imaging studies reviewed. (See chart for details) Patient is a 80-year-old female presents to ER for evaluation of nausea vomiting abdominal pain chest pain, she was found to have acute cholecystitis, patient will admit to internal medicine service, consulted Dr. Quinn general surgery for treatment Lenore Disclaimer: Lenore Disclaimer: This electronic medical record was generated, in whole or in part, using a voice recognition dictation system. Departure Departure Impression: Primary Impression: Acute cholecystitis Additional Impressions: Hypertensive urgency Chest pain Disposition: ADMITTED INPT THIS HOSP Admitting Physician: Enrike Masters Condition: IMPROVED Referrals: ENRIKE MASTERS MD (PCP) FERCHO GEE DO Mar 30, 2020 07:43
[2020-03-30] MEDS ORDERED: hydrALAZINE 20 MG/ML VIAL. IVP ONE (07:45)
--- NOTE | 2020-03-30 09:11 | RAD ---
EXAM: CT Abdomen and Pelvis without IV contrast INDICATION: Reason: abdominal pain, nausea, vomiting, epigastric chest pain TECHNIQUE: Multi-detector row CT images were acquired from the lung bases through the abdomen and pel vis without the use of IV contrast. Sagittal and coronal images were acquired from the transaxial carlos a. All CT scans performed at this facility utilize dose optimization techniques as appropriate to the exam, including the following: Automated exposure control and adjustment of the mA and/or KV accordi ng to patient size (this includes techniques or standardized protocols for targeted exams where dose is indication/reason for exam). ORAL CONTRAST: None COMPARISON: None FINDINGS: The absence of IV contrast limits evaluation of soft tissue pathology. LOWER CHEST: Small hiatal hernia LIVER: Unremarkable BILIARY SYSTEM: Distended and with mild wall thickening and layering gallstones. There is mild perich olecystic soft tissue stranding present near the fundus. Bile ducts are not dilated. PANCREAS: Unremarkable SPLEEN: Unremarkable ADRENALS: Mild fullness of left adrenal gland measuring 1.4 x 2.1 cm is present. The right adrenal g land is unremarkable. KIDNEYS & URETERS: Surgically absent right kidney. Left kidney shows multiple cortical lesions stati stically likely to be cysts. Two such lesions are dense, measuring 1.2 and 1.6 cm in the anterior mid pole and there is mild perirenal soft tissue stranding but no hydronephrosis. Nonobstructing 2 mm sto ne at the inferior pole is present. BLADDER: Distended. Otherwise unremarkable. REPRODUCTIVE ORGANS: Hysterectomy with bilateral pelvic judd dissection, extended up to the lower a bdominal retroperitoneal lymph nodes. GASTROINTESTINAL: Scattered colonic diverticuli. The stomach, small bowel, and colon are unremarkable . The appendix is not well seen but there are no findings of acute appendicitis. MESENTERY/PERITONEUM/RETROPERITONEUM: Unremarkable VASCULAR: Unremarkable LYMPH NODES: No adenopathy OSSEOUS & SOFT TISSUES: L4-L5 grade 1 anterolisthesis is present. No acute fracture or aggressive ap pearing bony lesions. IMPRESSION: 1. Findings suspicious for acute cholecystitis. Consider correlation with right upper quadrant abdom inal ultrasound. 2. Status post right nephrectomy with multiple left renal cortical lesions statistically likely to b e cysts but are incompletely characterized on noncontrast CT. Consider follow-up with renal mass prot ocol CT or MRI in 6 months. 3. Nonspecific fullness of the left adrenal gland. This could be further evaluated on a follow-up CT or MRI in 3-6 months. 4. Status post hysterectomy and bilateral pelvic judd dissection with no findings suspicious for me tastatic disease in the abdomen or pelvis on noncontrast CT. Electronically signed by: Abhinav Pavon MD (03/30/2020 9:09 AM) [id number]
[2020-03-30] MEDS ORDERED: MORPHINE SULFATE 4 MG/ML VIAL. IV ONE (09:30)
[2020-03-30] MEDS ORDERED: METOCLOPRAMIDE HCL 10 MG/2 ML VIAL. IVP ONE (09:30)
--- NOTE | 2020-03-30 10:14 | RAD ---
Ultrasound of the right upper quadrant of the abdomen 03/30/2020 CLINICAL HISTORY: Right upper quadrant abdominal pain. Epigastric pain. Nausea and vomiting. TECHNIQUE: A real-time ultrasound examination of the right upper quadrant of the abdomen was performe d. Multiple images were obtained. FINDINGS: Comparison is made to the patient's CT scan of the abdomen formed earlier today. The gallbladder is distended. Echogenic gallstones are seen within the dependent portions of the gall bladder. Mild gallbladder wall thickening is seen measuring 3 mm in thickness. These ultrasound findi ngs are consistent with the CT findings of acute cholecystitis. The common bile duct measures 5 mm in diameter which is within normal limits. The liver is normal in size measuring 15.5 cm in length. No focal abnormality of the liver is seen. The visualized portions of the pancreas is within normal limi ts. The patient is post right nephrectomy. No free fluid is seen IMPRESSION: Findings are seen consistent with acute cholecystitis. Electronically signed by: Omi Beard MD (03/30/2020 10:12 AM) [id number]
[2020-03-30] MEDS ORDERED: ONDANSETRON PF 4 MG/2 ML VIAL. IV PRN (10:15)
[2020-03-30] MEDS ORDERED: MORPHINE SULFATE 4 MG/ML VIAL. IV PRN (10:15)
[2020-03-30] MEDS ORDERED: PIP/TAZO PER PHARMACY MC PRN (10:30)
[2020-03-30] MEDS ORDERED: PIPERACILLIN/TAZOBACTAM 3.375 GM in IV NORMAL SALINE 50ML 50 ML IV ONE (11:00)
[2020-03-30] MEDS: IV NORMAL SALINE 1000ML BAG 1,000 ML IV SCH ×2 (11:41→23:58)
[2020-03-30] MEDS ORDERED: CARV6.253 PO (12:02)
[2020-03-30] MEDS ORDERED: COLC0.6T45 PO (12:02)
[2020-03-30] MEDS ORDERED: INSU100I13 SQ (12:02)
[2020-03-30] MEDS ORDERED: METO25TA4 PO (12:02)
[2020-03-30 12:13] VITALS: BP 150/62
--- NOTE | 2020-03-30 12:19 | PDOC2 ---
NIKOLAI GRIMES DISTRIBUTOR CLEANER 03/30/20 1219: CONSULT Date of Consult Date of Consult DATE: 03/30/20 TIME: 12:14 Reason for Consult Reason for Consult: cholecystitis Referring Physician Referring Physician: ER Identification/Chief Complaint Chief Complaint chest pain Source Source: Chart review, Patient History of Present Illness Reason for Visit: Patient seems confused about presentation--tells me she left strange, so came in . Denies pain. ER note reveals abdominal and chest pain with vomiting. Patient does not recall vomiting, but recalls the pain now. Currently no pain Past Medical History Cardiovascular: HTN, Syncope, Hyperlipidemia Heme/Onc: Cancer Psych: Anxiety Musculoskeletal: Osteoarthritis Rheumatologic: Gout Renal/: Chronic renal insuff Endocrine: Diabetes Past Surgical History Past Surgical History: Appendectomy, Tonsillectomy, Hysterectomy, Other Family History Family History: Family History Unknown Social History ALCOHOL: none Drugs: None Lives: with Family Current Problem List Problem List Problems Medical Problems: (1) Acute cholecystitis Status: Acute (2) Chest pain Status: Acute (3) Hypertensive urgency Status: Acute Current Medications Current Medications Current Medications Ondansetron HCl (Zofran) 4 mg 1X ONCE IVP Last administered on 03/30/20at 07:43; Start 03/30/20 at 07:15; Stop 03/30/20 at 07:16; Status DC Hydralazine HCl (Apresoline Inj) 20 mg 1X ONCE IVP Last administered on 03/30/20at 08:05; Start 03/30/20 at 07:45; Stop 03/30/20 at 07:46; Status DC Morphine Sulfate (Morphine Sulfate) 4 mg 1X ONCE IV ; Start 03/30/20 at 09:30; Stop 03/30/20 at 09:31; Status DC Metoclopramide HCl (Reglan Vial) 10 mg 1X ONCE IVP Last administered on 03/30/20at 09:47; Start 03/30/20 at 09:30; Stop 03/30/20 at 09:31; Status DC Ondansetron HCl (Zofran) 4 mg PRN Q8HRS PRN IV NAUSEA/VOMITING; Start 03/30/20 at 10:15; Stop 03/31/20 at 10:14 Morphine Sulfate (Morphine Sulfate) 4 mg PRN Q2HR PRN IV PAIN; Start 03/30/20 at 10:15; Stop 03/31/20 at 10:14 Sodium Chloride 1,000 ml @ 75 mls/hr [id number] IV Last administered on 03/30/20at 11:41; Start 03/30/20 at 10:15; Stop 03/31/20 at 10:14 Piperacillin Sod/ Tazobactam Sod (Zosyn Per Pharmacy) 1 each PRN DAILY PRN MC SEE COMMENTS; Start 03/30/20 at 10:30 Piperacillin Sod/ Tazobactam Sod 3.375 gm/Sodium Chloride 50 ml @ 100 mls/hr 1X ONCE IV Last administered on 03/30/20at 11:41; Start 03/30/20 at 11:00; Stop 03/30/20 at 11:29; Status DC Piperacillin Sod/ Tazobactam Sod 2.25 gm/Sodium Chloride 50 ml @ 100 mls/hr Q6HRS IV ; Start 03/30/20 at 18:00 Active Scripts Active Reported Colchicine 0.6 Mg Tablet 1 Tab PO DAILY Metoprolol Tartrate 25 Mg Tablet 1 Tab PO BID MDD 25 90 Days Carvedilol 6.25 Mg Tablet 1 Tab PO BID Lantus Solostar (Insulin Glargine,Hum.rec.anlog) 100 Unit/1 Ml Insuln.pen 33 Units SQ QHS Allopurinol 100 Mg Tablet 100 Mg PO DAILY Fluoxetine Hcl 40 Mg Capsule 40 Mg PO DAILY Atorvastatin Calcium 40 Mg Tablet 40 Mg PO DAILY Amlodipine Besylate 10 Mg Tablet 10 Mg PO DAILY Toujeo Solostar (Insulin Glargine,Hum.rec.anlog) 300 Unit/1 Ml Insuln.pen 35 Unit SQ DAILY Allergies Allergies: Coded Allergies: No Known Drug Allergies (Unverified , 11/23/17) ROS General: No: Chills, Other (fevers ) PSYCHOLOGICAL ROS: No: Anxiety, Depression Eyes: No Blurry vision, No Double vision HEENT: No: Heacaches, Sore Throat Hematological and Lymphatic: No: Bleeding Problems, Blood Clots Respiratory: No: Cough, Shortness of breath Cardiovascular: No Chest Pain, No Palpitations Gastrointestinal: Yes Other (see hpi) Genitourinary: No Dysuria, No Hematuria Musculoskeletal: No Joint Pain, No Muscular Weakness Neurological: No Impaired Coord/balance, No Numbness/Tingling Physical Exam General: Cooperative, No acute distress, Other (some confusion) HEENT: Atraumatic, PERRLA Lungs: Clear to auscultation, Normal air movement Heart: Regular rate, Normal S1, Normal S2 Abdomen: Soft, No tenderness, No hepatosplenomegaly Extremities: No clubbing, No cyanosis Skin: No rashes, No breakdown Neuro: Normal gait, Normal speech MUSCULOSKELETAL: No deformity, No swelling Vitals VITALS Vital Signs Date Time Temp Pulse Resp B/P (MAP) Pulse Ox O2 Delivery O2 Flow Rate FiO2 03/30/20 08:43 74 20 185/84 (117) 03/30/20 08:02 98 03/30/20 07:41 Room Air 03/30/20 06:54 98.1 98.1 Labs Labs Laboratory Tests Test 03/30/20 07:00 03/30/20 09:22 03/30/20 09:47 03/30/20 11:36 White Blood Count 12.3 x10^3/uL (4.0-11.0) Red Blood Count 4.20 x10^6/uL (3.50-5.40) Hemoglobin 11.7 g/dL (12.0-15.5) Hematocrit 35.4 % (36.0-47.0) Mean Corpuscular Volume 84 fL (79-100) Mean Corpuscular Hemoglobin 28 pg (25-35) Mean Corpuscular Hemoglobin Concent 33 g/dL (31-37) Red Cell Distribution Width 14.1 % (11.5-14.5) Platelet Count 337 x10^3/uL (140-400) Neutrophils (%) (Auto) 85 % (31-73) Lymphocytes (%) (Auto) 12 % (24-48) Monocytes (%) (Auto) 4 % (0-9) Eosinophils (%) (Auto) 0 % (0-3) Basophils (%) (Auto) 0 % (0-3) Neutrophils # (Auto) 10.4 x10^3/uL (1.8-7.7) Lymphocytes # (Auto) 1.4 x10^3/uL (1.0-4.8) Monocytes # (Auto) 0.4 x10^3/uL (0.0-1.1) Eosinophils # (Auto) 0.0 x10^3/uL (0.0-0.7) Basophils # (Auto) 0.0 x10^3/uL (0.0-0.2) Sodium Level 139 mmol/L (136-145) Potassium Level 3.6 mmol/L (3.5-5.1) Chloride Level 101 mmol/L (98-107) Carbon Dioxide Level 24 mmol/L (21-32) Anion Gap 14 (6-14) Blood Urea Nitrogen 21 mg/dL (7-20) Creatinine 1.4 mg/dL (0.6-1.0) Estimated GFR (Cockcroft-Gault) 36.3 BUN/Creatinine Ratio 15 (6-20) Glucose Level 242 mg/dL (70-99) Calcium Level 9.8 mg/dL (8.5-10.1) Magnesium Level 1.7 mg/dL (1.8-2.4) Total Bilirubin 0.7 mg/dL (0.2-1.0) Aspartate Amino Transf (AST/SGOT) 16 U/L (15-37) Alanine Aminotransferase (ALT/SGPT) 24 U/L (14-59) Alkaline Phosphatase 90 U/L (46-116) Troponin I Quantitative < 0.017 ng/mL (0.000-0.055) < 0.017 ng/mL (0.000-0.055) BK-Cco-C-Type Natriuretic Peptide 319 pg/mL (0-449) Total Protein 7.6 g/dL (6.4-8.2) Albumin 3.5 g/dL (3.4-5.0) Albumin/Globulin Ratio 0.9 (1.0-1.7) Lipase 257 U/L (73-393) SARS-CoV-2 Antigen (Rapid) Negative (NEGATIVE) Glucose (Fingerstick) 199 mg/dL (70-99) Laboratory Tests Test 03/30/20 07:00 03/30/20 09:22 03/30/20 09:47 03/30/20 11:36 White Blood Count 12.3 x10^3/uL (4.0-11.0) Red Blood Count 4.20 x10^6/uL (3.50-5.40) Hemoglobin 11.7 g/dL (12.0-15.5) Hematocrit 35.4 % (36.0-47.0) Mean Corpuscular Volume 84 fL (79-100) Mean Corpuscular Hemoglobin 28 pg (25-35) Mean Corpuscular Hemoglobin Concent 33 g/dL (31-37) Red Cell Distribution Width 14.1 % (11.5-14.5) Platelet Count 337 x10^3/uL (140-400) Neutrophils (%) (Auto) 85 % (31-73) Lymphocytes (%) (Auto) 12 % (24-48) Monocytes (%) (Auto) 4 % (0-9) Eosinophils (%) (Auto) 0 % (0-3) Basophils (%) (Auto) 0 % (0-3) Neutrophils # (Auto) 10.4 x10^3/uL (1.8-7.7) Lymphocytes # (Auto) 1.4 x10^3/uL (1.0-4.8) Monocytes # (Auto) 0.4 x10^3/uL (0.0-1.1) Eosinophils # (Auto) 0.0 x10^3/uL (0.0-0.7) Basophils # (Auto) 0.0 x10^3/uL (0.0-0.2) Sodium Level 139 mmol/L (136-145) Potassium Level 3.6 mmol/L (3.5-5.1) Chloride Level 101 mmol/L (98-107) Carbon Dioxide Level 24 mmol/L (21-32) Anion Gap 14 (6-14) Blood Urea Nitrogen 21 mg/dL (7-20) Creatinine 1.4 mg/dL (0.6-1.0) Estimated GFR (Cockcroft-Gault) 36.3 BUN/Creatinine Ratio 15 (6-20) Glucose Level 242 mg/dL (70-99) Calcium Level 9.8 mg/dL (8.5-10.1) Magnesium Level 1.7 mg/dL (1.8-2.4) Total Bilirubin 0.7 mg/dL (0.2-1.0) Aspartate Amino Transf (AST/SGOT) 16 U/L (15-37) Alanine Aminotransferase (ALT/SGPT) 24 U/L (14-59) Alkaline Phosphatase 90 U/L (46-116) Troponin I Quantitative < 0.017 ng/mL (0.000-0.055) < 0.017 ng/mL (0.000-0.055) OA-Goc-J-Type Natriuretic Peptide 319 pg/mL (0-449) Total Protein 7.6 g/dL (6.4-8.2) Albumin 3.5 g/dL (3.4-5.0) Albumin/Globulin Ratio 0.9 (1.0-1.7) Lipase 257 U/L (73-393) SARS-CoV-2 Antigen (Rapid) Negative (NEGATIVE) Glucose (Fingerstick) 199 mg/dL (70-99) Assessment/Plan Assessment/Plan cholecystitis--abx, will need patty ? dementia, baseline--seems confused on presentation, hx hypertensive, hyperglycemia--medical management to improve will review with Dr Thayer on timing of patty SILVIANO THAYER MD 03/31/20 0839: CONSULT Assessment/Plan Assessment/Plan Patient seen and examined by me complaining of right upper quadrant abdominal pain. Ultrasound reviewed acute cholecystitis plan laparoscopic cholecystectomy. Agree with Reynolds assessment plan NIKOLAI GRIMES APRN Mar 30, 2020 12:19 SILVIANO THAYER MD Mar 31, 2020 08:39
[2020-03-30 15:00] VITALS: BP 137/65
[2020-03-30] MEDS: PIPERACILLIN/TAZOBACTAM 2.25 GM in IV NORMAL SALINE 50ML 50 ML IV SCH ×2 (18:00→23:59)
[2020-03-30 19:00] VITALS: BP 157/62
[2020-03-30 23:00] VITALS: BP 171/72
[2020-03-31] VITALS (10 sets, daily range): BP systolic 90–163; BP diastolic 50–104
[2020-03-31] MEDS ORDERED: PROCHLORPERAZINE 10 MG/2 ML VIAL. IVP PRN (06:00)
[2020-03-31] MEDS ORDERED: MORPHINE SULFATE 2 MG/ML VIAL. IVP PRN (06:00)
[2020-03-31] MEDS ORDERED: IV RINGERS,LACTATED 1000ML 1,000 ML IV SCH (06:00)
[2020-03-31] MEDS ORDERED: fentaNYL PF VIAL 100 MCG/2 ML VIAL IVP PRN ×2 (06:00)
[2020-03-31] MEDS ORDERED: HYDROmorphone 2 MG/ML VIAL IVP PRN (06:00)
[2020-03-31] MEDS: PIPERACILLIN/TAZOBACTAM 2.25 GM in IV NORMAL SALINE 50ML 50 ML IV SCH ×3 (06:23→17:40)
[2020-03-31] MEDS ORDERED: IOHEXOL 300 MG/ML 50 ML VIAL. ONE (07:02)
[2020-03-31] MEDS ORDERED: SURGICEL HEMOSTAT 4X8 EACH. ONE (07:02)
[2020-03-31] MEDS ORDERED: BUPIVACAINE-EPI 0.25% 30 ML VIAL KIT. ONE (07:02)
[2020-03-31] MEDS ORDERED: LIDOCAINE 2% PF 5 ML VIAL. ONE (07:26)
[2020-03-31] MEDS ORDERED: PROPOFOL 10 MG/ML (20ML) VIAL. IV ONE (07:26)
[2020-03-31] MEDS ORDERED: ROCURONIUM 50 MG/5 ML VIAL. ONE (07:26)
[2020-03-31] MEDS ORDERED: fentaNYL PF VIAL 100 MCG/2 ML VIAL ONE (07:37)
[2020-03-31] MEDS ORDERED: SUCCINYLCHOLINE 200 MG/10 ML VIAL. ONE (07:38)
[2020-03-31] MEDS ORDERED: DESFLURANE 31 TO 60 MINUTES IH ONE (08:04)
[2020-03-31] MEDS ORDERED: DEXAMETHASONE SOD PHOS 4 MG/ML VIAL ONE (08:04)
[2020-03-31] MEDS ORDERED: ONDANSETRON PF 4 MG/2 ML VIAL. ONE (08:04)
[2020-03-31] MEDS ORDERED: NEOSTIGMINE METHYLSULFATE 5 MG/5 ML SYRINGE. ONE (08:17)
[2020-03-31] MEDS ORDERED: GLYCOPYRROLATE 1 MG/5 ML VIAL. ONE (08:17)
--- NOTE | 2020-03-31 08:42 | PDOC4 ---
Operative Note Operative Note Date: March 312020 at 839 Preoperative diagnosis: Acute cholecystitis Postoperative diagnosis: Same Procedure: Laparoscopic cholecystectomy Surgeon: Kai Specimen: Gallbladder Dictation: Patient is a 80-year-old female admitted to the hospital with right upper quadrant abdominal pain ultrasound showing thickened gallbladder wall with sludge consistent with acute cholecystitis. Procedure of laparoscopic cholecystectomy was explained to the patient detail risk benefits were also discussed including bleeding infection injury to intra-abdominal contents possible necessitating further or open operations alternatives to this procedure also discussed with the patient who seemed to understand and gave both verbal and written consent to have the procedure performed. Patient was taken to the operating room placed in supine position general anesthesia was initiated once patient was sleeping intubated her abdomen was prepped and draped usual sterile fashion using ChloraPrep. An area in the left upper quadrant was injected with quarter percent Marcaine with epinephrine incision made 11 blade scalpel and a 5 mm Visiport was placed under direct visualization into the abdomen creating pneumoperitoneum. 5 mm scope was then used to inspect the abdomen was noted that she had multiple adhesions throughout most of the abdomen but she did have a clear area in the right upper quadrant which allowed for placement of ports to do the cholecystectomy. A 11 mm port was placed in the right midabdomen under direct visualization to avoid adhesions. A 5 mm port was placed in the epigastrium and a 5 mm port was placed in the right lateral abdomen all under direct visualization. There were some adhesions to the gallbladder these were taken down with blunt dissection the dome of the gallbladder was grasped retracted cephalad the infundibulum the gallbladder was grasped retracted laterally exposing the triangle adherent tissues the triangle were taken down exposing the cystic duct and cystic artery both were doubly clipped and transected the gallbladder was taken off the liver with hook electrocautery placed in Endo Catch bag and removed from the low millimeter port site. The right upper quadrant was irrigated and suctioned dry there is a little bit of oozing from the gallbladder bed. Corin was used in the gallbladder fossa for hemostasis. The pneumoperitoneum was then reduced all ports removed the fascial defect at the 11 mm port site was closed with a [id number] 0 Vicryl suture and the skin was reapproximated all port sites for subcuticular Monocryl Mastisol Steri-Strips and island dressings were applied. Patient was awakened extubated in the operating room taken to recovery in stable condition all sponge instrument needle counts listed as correct estimated blood loss 20 mL SILVIANO THAYER MD Mar 31, 2020 08:42
[2020-03-31] MEDS ORDERED: INSULIN LISPRO 100 UNIT/ML 3ML VIAL for OP,RR ONLY. SQ PRN (09:45)
--- NOTE | 2020-03-31 10:18 | PDOC ---
Provider Note Date of Service: DATE: 03/31/20 TIME: 10:17 Provider Note [id number] Justifications for Admission Other Justification FRANK DIA MD Mar 31, 2020 10:18
--- NOTE | 2020-03-31 11:24 | HP ---
ADMIT DATE: 03/30/2020 CHIEF COMPLAINT: Abdominal pain. HISTORY OF PRESENT ILLNESS: The patient is a 80-year-old white female with insulin-dependent diabetes and CKD 3B, history of renal cell cancer, came in with upper abdominal pain and CT and sonographic evidence of acute cholecystitis. She went to Surgery this morning with Dr. Quinn and a laparoscopic cholecystectomy was done and she is feeling better at this time. Recent office visit showed an A1c of 6.9. She was followed by a horse buyer regarding her kidney issues and there is debate about what the next steps for that will be. ALLERGIES: No allergies. MEDICATIONS: Listed per the chart. She takes Lantus with good control. SOCIAL HISTORY: Nonsmoker, , nondrinker, physically active. FAMILY HISTORY: Unremarkable. REVIEW OF SYSTEMS: No other complaints. OBJECTIVE: ENT: All within normal limits. NECK: No masses, nodes or bruits. LUNGS: Clear. CARDIOVASCULAR: Regular rate. No murmur. ABDOMEN: Covered with a dressing. BREASTS: Not examined. EXTREMITIES: Good pedal and radial pulses. No joint or skin lesions. NEUROLOGIC: Physiologic. ASSESSMENT: Status post laparoscopic cholecystectomy for acute cholecystitis. She also has well controlled insulin-dependent diabetes, chronic kidney disease 3B and issues with prior renal cell cancer as well as other medical problems. PLAN: As ordered. FRANK DIA MD DR: GRACE/sherly JOB#: [id number] / [id number]
[2020-03-31] MEDS: ALLOPURINOL 100 MG TABLET. PO SCH (12:29)
[2020-03-31] MEDS: oxyCODONE/APAP 5/325 1 TAB TABLET PO PRN ×2 (12:29→22:10)
[2020-03-31] MEDS: FLUoxetine HCL 20 MG CAPSULE PO SCH (12:30)
[2020-03-31] MEDS: CARVEDILOL 6.25 MG TABLET. PO SCH ×2 (12:30→17:39)
[2020-03-31] MEDS: INSULIN LISPRO 300 UNITS/3 ML VIAL. SQ SCH ×2 (12:37→17:00)
[2020-03-31] MEDS: INSULIN GLARGINE SYRINGE. SQ SCH ×2 (12:37→22:16)
--- NOTE | 2020-03-31 14:34 | EKG ---
[facility] [address] [place] [address] Test Date: 2020-03-31 Test Time: 14:22:17 Pat Name: MELO SALDIVAR Department: Room: [facility] Gender: F Machine Packer: : [id number] Requested By: FRANK DIA Order Number: [id number] Reading MD: Measurements Intervals [place] Rate: 121 P: VT: QRS: 30 QRSD: 94 T: 2 QT: 348 QTc: 497 Interpretive Statements IRREGULAR RHYTHM, NO P-WAVE FOUND ST & T ABNORMALITY, CONSIDER INFERIOR ISCHEMIA OR LEFT VENTRICULAR STRAIN ABNORMAL ECG RI6.02 Compared to ECG 10/12/2019 00:55:43 T-wave abnormality now present Possible ischemia now present Sinus rhythm no longer present
[2020-03-31] MEDS ORDERED: METOPROLOL TART IMMED RELEASE 25 MG TABLET. PO SCH ×2 (14:45→21:00)
[2020-03-31] MEDS ORDERED: ENOXAPARIN 40 MG/0.4 ML SYRINGE. SQ SCH (15:00)
--- NOTE | 2020-03-31 15:00 | NUR ---
Around 1415 RN noticed patients heart rate increased into the 130's and monitor saying patient is in Afib, RN noticed that there was no P-waves and the rate was irregular. RN ordered a 12 lead EKG per protocol. Paged Dr. Wells due to EKG stating irregular rhythm and no p-waves, abnormal EKG. Dr. Wells ordered Metoprolol 25 PO BID, an ECHO and Lovenox 40mg SQ. While waiting for Metoprolol to be verified by pharmacy. Patients Heart rate increased to 160's 170's blood pressure 160's/100's. Patient did become dizzy. Patient was up in the bathroom at the time. Called Dr. Wells back and Dr. Wells ordered to discontinue the metoprolol and order Cardizem 10mg IV push X1 and then start a Cardizem drip at 10mg/hr. Called Nursing security shift supervisor for a room on the 2nd floor. Patient transferred to room 211 via bed with all personal belongings accompanied by this RN and KAVITHA Solis. Report was given to NELSON Ng via phone.
--- NOTE | 2020-03-31 16:09 | NUR ---
RN NOTE patient transferred from 514 to 211 d/t AFib RVR. Patient transported by bed, placed on tele monitor and HR was irreg at 127. Patient given ordered cardizem push and started on cardizem gtt per orders. Patient oriented to room and unit protocols and verbalized understanding. This RN received report from Ninoska Bang RN and agrees with previous assessments. This RN will continue to monitor.
[2020-04-01] MEDS: PIPERACILLIN/TAZOBACTAM 2.25 GM in IV NORMAL SALINE 50ML 50 ML IV SCH ×4 (00:07→17:42)
[2020-04-01 02:26] VITALS: BP 104/48
[2020-04-01 07:00] VITALS: BP 106/51
[2020-04-01] MEDS: INSULIN LISPRO 300 UNITS/3 ML VIAL. SQ SCH (08:00)
[2020-04-01] MEDS: CARVEDILOL 6.25 MG TABLET. PO SCH ×2 (08:00→17:00)
--- NOTE | 2020-04-01 08:17 | PDOC ---
SURGICAL PROGRESS NOTE DATE: 04/01/20 TIME: 08:16 Subjective Patient states she is feeling better this morning. She has been able to eat and drink without difficulty Vital Signs Vital Signs Date Time Temp Pulse Resp B/P (MAP) Pulse Ox O2 Delivery O2 Flow Rate FiO2 04/01/20 02:26 98.2 61 16 104/48 (66) 93 Room Air 98.2 03/31/20 09:20 8 I&O Intake and Output0 04/01/20 07:00 Intake Total 1625 ml Output Total 20 ml Balance 1605 ml Intake Oral 300 ml IV Total 1325 ml Output Estimated Blood Loss 20 ml # Voids [address]: No General: Alert, Oriented X3, Cooperative, mild distress Abdomen: Normal bowel sounds, Soft, Other (Mild incisional tenderness wounds clean dry and intact) Labs Laboratory Tests Test 03/30/20 09:22 03/30/20 09:47 03/30/20 11:36 03/30/20 12:56 Coronavirus (PCR) Not detected (Not Detected) SARS-CoV-2 Antigen (Rapid) Negative (NEGATIVE) Troponin I Quantitative < 0.017 ng/mL (0.000-0.055) < 0.017 ng/mL (0.000-0.055) Glucose (Fingerstick) 199 mg/dL (70-99) Test 03/30/20 16:18 03/30/20 20:49 03/31/20 08:56 03/31/20 10:55 Glucose (Fingerstick) 197 mg/dL (70-99) 172 mg/dL (70-99) 170 mg/dL (70-99) 180 mg/dL (70-99) Test 03/31/20 17:34 03/31/20 20:51 04/01/20 08:03 Glucose (Fingerstick) 154 mg/dL (70-99) 160 mg/dL (70-99) 125 mg/dL (70-99) Laboratory Tests Test 03/31/20 08:56 03/31/20 10:55 03/31/20 17:34 03/31/20 20:51 Glucose (Fingerstick) 170 mg/dL (70-99) 180 mg/dL (70-99) 154 mg/dL (70-99) 160 mg/dL (70-99) Test 04/01/20 08:03 Glucose (Fingerstick) 125 mg/dL (70-99) Problem List Problems Medical Problems: (1) Acute cholecystitis Status: Acute (2) Chest pain Status: Acute (3) Hypertensive urgency Status: Acute Assessment/Plan Status post laparoscopic cholecystectomy patient stable from surgical standpoint Patient to follow-up with Dr. Thayer in 2 weeks no lifting more than 20 pounds for 2 weeks and low-fat diet for 2 weeks Justicifation of Admission Dx: Justifications for Admission: Justification of Admission Dx: Yes SILVIANO THAYER MD Apr 01, 2020 08:17
[2020-04-01] MEDS: ALLOPURINOL 100 MG TABLET. PO SCH (09:15)
[2020-04-01] MEDS: FLUoxetine HCL 20 MG CAPSULE PO SCH (09:15)
[2020-04-01] MEDS: INSULIN GLARGINE SYRINGE. SQ SCH ×2 (09:27→20:36)
--- NOTE | 2020-04-01 10:33 | PDOC ---
Provider Note Date of Service: DATE: 04/01/20 TIME: 10:31 Provider Note vss, no temp- has af/rvr 8 hrs 03/31, stopped on iv dilt- labs ok, will do tsh- has had in past ,echo 10/26 ok- will add xarleto now re Chads2-vasc high risk, cv consult, may need op monitor to assess frequency Justifications for Admission Other Justification FRANK DIA MD Apr 01, 2020 10:33
[2020-04-01] MEDS ORDERED: ANTI-COAG MONITOR BY PHARMACY. MC PRN (10:45)
[2020-04-01 11:00] VITALS: BP 106/45
[2020-04-01] MEDS: RIVAROXABAN 15 MG TABLET. PO SCH (13:07)
[2020-04-01 15:00] VITALS: BP 134/59
--- NOTE | 2020-04-01 16:17 | PDOC2 ---
CONSULT Date of Consult Date of Consult DATE: 04/01/20 TIME: 16:11 Reason for Consult Reason for Consult: Paroxysmal atrial fibrillation Referring Physician Referring Physician: Dr. Wells Identification/Chief Complaint Chief Complaint Abdominal pain Source Source: Chart review, Patient History of Present Illness Reason for Visit: The patient is a 80-year-old female who was admitted on the due to episodes of abdominal and lower chest discomfort. This was then associated with nausea and vomiting. Her initial EKG showed no ischemic changes. An ultrasound showed acute cholecystitis. She was evaluated by the general surgery service and yesterday underwent a laparoscopic cholecystectomy for acute cholecystitis. The patient did well postoperatively. However she did have an episode of atrial fibrillation last night which converted to a sinus rhythm on IV Cardizem. The patient remains in sinus rhythm this morning. She was started on Xarelto earlier today. At the present time the patient is feeling well with minimal abdominal discomfort. Past Medical History Cardiovascular: HTN, Syncope, Hyperlipidemia Heme/Onc: Cancer Psych: Anxiety Musculoskeletal: Osteoarthritis Rheumatologic: Gout Renal/: Chronic renal insuff Endocrine: Diabetes Past Surgical History Past Surgical History: Appendectomy, Tonsillectomy, Hysterectomy, Other (Right nephrectomy) Family History Family History: Family History Unknown Social History No ALCOHOL: none Drugs: None Lives: with Family Current Problem List Problem List Problems Medical Problems: (1) Acute cholecystitis Status: Acute (2) Chest pain Status: Acute (3) Hypertensive urgency Status: Acute Current Medications Current Medications Current Medications Ondansetron HCl (Zofran) 4 mg 1X ONCE IVP Last administered on 03/30/20at 07:43; Start 03/30/20 at 07:15; Stop 03/30/20 at 07:16; Status DC Hydralazine HCl (Apresoline Inj) 20 mg 1X ONCE IVP Last administered on 03/30/20at 08:05; Start 03/30/20 at 07:45; Stop 03/30/20 at 07:46; Status DC Morphine Sulfate (Morphine Sulfate) 4 mg 1X ONCE IV Last administered on 03/31/20at 10:17; Start 03/30/20 at 09:30; Stop 03/30/20 at 09:31; Status DC Metoclopramide HCl (Reglan Vial) 10 mg 1X ONCE IVP Last administered on 03/30/20at 09:47; Start 03/30/20 at 09:30; Stop 03/30/20 at 09:31; Status DC Ondansetron HCl (Zofran) 4 mg PRN Q8HRS PRN IV NAUSEA/VOMITING; Start 03/30/20 at 10:15; Stop 03/31/20 at 10:25; Status DC Morphine Sulfate (Morphine Sulfate) 4 mg PRN Q2HR PRN IV PAIN; Start 03/30/20 at 10:15; Stop 03/31/20 at 10:25; Status DC Sodium Chloride 1,000 ml @ 75 mls/hr [id number] IV Last administered on 03/30/20at 23:58; Start 03/30/20 at 10:15; Stop 03/31/20 at 10:25; Status DC Piperacillin Sod/ Tazobactam Sod (Zosyn Per Pharmacy) 1 each PRN DAILY PRN MC SEE COMMENTS; Start 03/30/20 at 10:30 Piperacillin Sod/ Tazobactam Sod 3.375 gm/Sodium Chloride 50 ml @ 100 mls/hr 1X ONCE IV Last administered on 03/30/20at 11:41; Start 03/30/20 at 11:00; Stop 03/30/20 at 11:29; Status DC Piperacillin Sod/ Tazobactam Sod 2.25 gm/Sodium Chloride 50 ml @ 100 mls/hr Q6HRS IV Last administered on 04/01/20at 13:07; Start 03/30/20 at 18:00 Fentanyl Citrate (Fentanyl 2ml Vial) 25 mcg PRN Q5MIN PRN IVP MILD PAIN 1-3; Start 03/31/20 at 06:00; Stop 04/01/20 at 05:59; Status DC Fentanyl Citrate (Fentanyl 2ml Vial) 50 mcg PRN Q5MIN PRN IVP MODERATE PAIN 4- 6; Start 03/31/20 at 06:00; Stop 04/01/20 at 05:59; Status DC Morphine Sulfate (Morphine Sulfate) 1 mg PRN Q10MIN PRN IVP SEVERE PAIN 7-10; Start 03/31/20 at 06:00; Stop 04/01/20 at 05:59; Status DC Ringer's Solution 1,000 ml @ 30 mls/hr Q24H IV ; Start 03/31/20 at 06:00; Stop 03/31/20 at 17:59; Status DC Hydromorphone HCl (Dilaudid) 0.5 mg PRN Q10MIN PRN IVP SEVERE PAIN 7-10, 2nd CHOICE; Start 03/31/20 at 06:00; Stop 04/01/20 at 05:59; Status DC Prochlorperazine Edisylate (Compazine) 5 mg PACU PRN PRN IVP NAUSEA, MRX1; Start 03/31/20 at 06:00; Stop 04/01/20 at 05:59; Status DC Bupivacaine HCl/ Epinephrine Bitart (Sensorcain-Epi 0.25% Kit) 30 ml STK-MED ONCE .ROUTE Last administered on 03/31/20at 08:06; Start 03/31/20 at 07:02; Stop 03/31/20 at 07:03; Status DC Iohexol (Omnipaque 300 Mg/ml) 50 ml STK-MED ONCE .ROUTE ; Start 03/31/20 at 07:02; Stop 03/31/20 at 07:03; Status DC Cellulose (Surgicel Hemostat 4x8) 1 each STK-MED ONCE .ROUTE ; Start 03/31/20 at 07:02; Stop 03/31/20 at 07:03; Status DC Propofol (Diprivan) 200 mg STK-MED ONCE IV ; Start 03/31/20 at 07:26; Stop 03/31/20 at 07:26; Status DC Lidocaine HCl (Lidocaine Pf 2% Vial) 5 ml STK-MED ONCE .ROUTE ; Start 03/31/20 at 07:26; Stop 03/31/20 at 07:26; Status DC Rocuronium [place] (Zemuron) 50 mg STK-MED ONCE .ROUTE ; Start 03/31/20 at 07:26; Stop 03/31/20 at 07:27; Status DC Fentanyl Citrate (Fentanyl 2ml Vial) 100 mcg STK-MED ONCE .ROUTE ; Start 03/31/20 at 07:37; Stop 03/31/20 at 07:37; Status DC Succinylcholine Chloride (Anectine) 200 mg STK-MED ONCE .ROUTE ; Start 03/31/20 at 07:38; Stop 03/31/20 at 07:38; Status DC Ondansetron HCl (Zofran) 4 mg STK-MED ONCE .ROUTE ; Start 03/31/20 at 08:04; Stop 03/31/20 at 08:04; Status DC Dexamethasone Sodium Phosphate (Decadron) 4 mg STK-MED ONCE .ROUTE ; Start 03/31/20 at 08:04; Stop 03/31/20 at 08:04; Status DC Desflurane (Suprane) 30 ml STK-MED ONCE IH ; Start 03/31/20 at 08:04; Stop 03/31/20 at 08:04; Status DC Glycopyrrolate (Robinul) 1 mg STK-MED ONCE .ROUTE ; Start 03/31/20 at 08:17; Stop 03/31/20 at 08:17; Status DC Neostigmine [place] (Neostigmine Methylsulfate) 5 mg STK-MED ONCE .ROUTE ; Start 03/31/20 at 08:17; Stop 03/31/20 at 08:17; Status DC Oxycodone/ Acetaminophen (Percocet 5/325) 1 tab PRN Q4HRS PRN PO MODERATE PAIN Last administered on 03/31/20at 22:10; Start 03/31/20 at 08:45 Insulin Human Lispro (HumaLOG VIAL for OP,RR ONLY) 0-10 units PRN Q1HR PRN SQ PER PROTOCOL Last administered on 03/31/20at 09:46; Start 03/31/20 at 09:45; Stop 04/01/20 at 09:44; Status DC Allopurinol (Zyloprim) 100 mg DAILY PO Last administered on 04/01/20at 09:15; Start 03/31/20 at 10:15 Amlodipine Besylate (Norvasc) 10 mg DAILY PO Last administered on 04/01/20at 09:16; Start 03/31/20 at 10:30 Carvedilol (Coreg) 6.25 mg BIDWMEALS PO Last administered on 03/31/20at 17:39; Start 03/31/20 at 10:30 Metoprolol Tartrate (Lopressor) 25 mg BID PO ; Start 03/31/20 at 21:00; Stop 03/31/20 at 10:26; Status DC Fluoxetine HCl (PROzac) 40 mg DAILY PO Last administered on 04/01/20at 09:15; Start 03/31/20 at 10:30 Insulin Glargine (Lantus Syringe) 33 unit QHS SQ Last administered on 03/31/20at 22:16; Start 03/31/20 at 21:00 Insulin Glargine (Lantus Syringe) 28 unit DAILY SQ Last administered on 1at 09:27; Start 03/31/20 at 11:00 Insulin Human Lispro (HumaLOG) 0-7 UNITS TIDWMEALS SQ Last administered on 03/31/20at 12:37; Start 03/31/20 at 12:00; Stop 04/01/20 at 10:31; Status DC Dextrose (Dextrose 50%-Water Syringe) 12.5 gm PRN Q15MIN PRN IV SEE COMMENTS; Start 03/31/20 at 10:15 Metoprolol Tartrate (Lopressor) 25 mg BID PO ; Start 03/31/20 at 14:45; Stop 03/31/20 at 15:15; Status DC Enoxaparin Sodium (Lovenox 40mg Syringe) 40 mg Q24H SQ Last administered on 03/31/20at 15:47; Start 03/31/20 at 15:00; Stop 04/01/20 at 10:31; Status DC Diltiazem HCl (Cardizem Iv Push) 10 mg 1X ONCE IVP Last administered on 03/31/20at 15:48; Start 03/31/20 at 15:00; Stop 03/31/20 at 15:01; Status DC Diltiazem HCl 125 mg/Sodium Chloride 125 ml @ 10 mls/hr CONT PRN IV SEE I/O RECORD Last administered on 04/01/20at 02:20; Start 03/31/20 at 15:00; Stop 04/01/20 at 10:31; Status DC Rivaroxaban (Xarelto) 15 mg DAILYWSUP PO Last administered on 04/01/20at 13:07; Start 04/01/20 at 12:00 Info (Anti-Coagulation Monitoring By Pharmacy) 1 each PRN DAILY PRN MC SEE COMMENTS; Start 04/01/20 at 10:45 Lactobacillus Rhamnosus (Culturelle) 1 cap BID PO ; Start 04/01/20 at 21:00 Active Scripts Active Reported Colchicine 0.6 Mg Tablet 1 Tab PO DAILY Metoprolol Tartrate 25 Mg Tablet 1 Tab PO BID MDD 25 90 Days Carvedilol 6.25 Mg Tablet 1 Tab PO BID Lantus Solostar (Insulin Glargine,Hum.rec.anlog) 100 Unit/1 Ml Insuln.pen 33 Units SQ QHS Allopurinol 100 Mg Tablet 100 Mg PO DAILY Fluoxetine Hcl 40 Mg Capsule 40 Mg PO DAILY Atorvastatin Calcium 40 Mg Tablet 40 Mg PO DAILY Amlodipine Besylate 10 Mg Tablet 10 Mg PO DAILY Toulazaruso Solostar (Insulin Glargine,Hum.rec.anlog) 300 Unit/1 Ml Insuln.pen 35 Unit SQ DAILY Allergies Allergies: Coded Allergies: No Known Drug Allergies (Unverified , 11/23/17) ROS General: YES: Fatigue Gastrointestinal: Yes Abdominal Pain Physical Exam General: mild distress HEENT: Atraumatic Lungs: Clear to auscultation Heart: Regular rate Abdomen: Other (Slightly decreased bowel sounds) Vitals VITALS Vital Signs Date Time Temp Pulse Resp B/P (MAP) Pulse Ox O2 Delivery O2 Flow Rate FiO2 04/01/20 15:00 98.1 58 16 134/59 (84) 98 Room Air 98.1 03/31/20 09:20 8 Labs Labs Laboratory Tests Test 03/30/20 16:18 03/30/20 20:49 03/31/20 08:56 03/31/20 10:55 Glucose (Fingerstick) 197 mg/dL (70-99) 172 mg/dL (70-99) 170 mg/dL (70-99) 180 mg/dL (70-99) Test 03/31/20 17:34 03/31/20 20:51 04/01/20 08:03 04/01/20 11:39 Glucose (Fingerstick) 154 mg/dL (70-99) 160 mg/dL (70-99) 125 mg/dL (70-99) 123 mg/dL (70-99) Laboratory Tests Test 03/31/20 17:34 03/31/20 20:51 04/01/20 08:03 04/01/20 11:39 Glucose (Fingerstick) 154 mg/dL (70-99) 160 mg/dL (70-99) 125 mg/dL (70-99) 123 mg/dL (70-99) Images Images Abdominal ultrasound showing acute cholecystitis. Assessment/Plan Assessment/Plan 1. Acute cholecystitis. Postop day #1. The patient is doing well. She is followed by the surgical service. 2. Episode of paroxysmal atrial fibrillation postoperatively. Patient has converted to sinus rhythm on IV diltiazem. Xarelto was started earlier today. At this time we will continue to monitor. Prior to discharge we will arrange an outpatient monitor to exclude recurrent episodes of paroxysmal atrial fibrillation. 3. Hypertension. Under reasonable control. Continuing to monitor and will adjust medications as needed. 4. Diabetes mellitus. As per the surgical service. Thank you for allowing us to participate in the care of your patient. ANTIONETTE DEL CID MD Apr 01, 2020 16:17
[2020-04-01 19:00] VITALS: BP 158/63
[2020-04-01] MEDS: LACTOBACILLUS RHAMNOSUS GG 1 CAPSULE. PO SCH (20:28)
[2020-04-01 23:02] VITALS: BP 150/61
[2020-04-02] MEDS: PIPERACILLIN/TAZOBACTAM 2.25 GM in IV NORMAL SALINE 50ML 50 ML IV SCH ×4 (00:04→17:46)
[2020-04-02 02:51] VITALS: BP 141/76
[2020-04-02 07:00] VITALS: BP 180/78
[2020-04-02] MEDS: INSULIN GLARGINE SYRINGE. SQ SCH (08:10)
[2020-04-02] MEDS: FLUoxetine HCL 20 MG CAPSULE PO SCH (08:36)
[2020-04-02] MEDS: ALLOPURINOL 100 MG TABLET. PO SCH (08:37)
[2020-04-02] MEDS: LACTOBACILLUS RHAMNOSUS GG 1 CAPSULE. PO SCH ×2 (08:37→21:26)
[2020-04-02] MEDS: CARVEDILOL 6.25 MG TABLET. PO SCH ×2 (08:37→17:51)
--- NOTE | 2020-04-02 08:46 | PDOC ---
Provider Note Date of Service: DATE: 04/02/20 TIME: 08:45 Provider Note remains nsr, vss, no temp- tsh ok- will reduce lantus per glucose , monitor same , meds same Justifications for Admission Other Justification FRANK DIA MD Apr 02, 2020 08:46
[2020-04-02 10:21] VITALS: BP 133/58
[2020-04-02] MEDS: RIVAROXABAN 15 MG TABLET. PO SCH (12:22)
--- NOTE | 2020-04-02 12:41 | PDOC ---
JILL LOPEZ ASW/ASUW TACTICAL AIR CONTROLLER 04/02/20 1241: CARDIO Progress Notes Date and Time Date of Service 04/02/20 Time of Evaluation 1230 Subjective Subjective: No Chest Pain, No shortness of breath (at rest. C/o BURT), No Palpitations, No Dizziness Vitals Vitals Vital Signs Date Time Temp Pulse Resp B/P (MAP) Pulse Ox O2 Delivery O2 Flow Rate FiO2 04/02/20 10:21 99.0 66 15 133/58 (83) 95 Room Air 99.0 Weight Weight [ ] Input and Output Intake and Output Intake and Output 04/02/20 06:59 Intake Total 470 ml Balance 470 ml Intake Oral 470 ml # Voids 5 Laboratory Labs Laboratory Tests Test 04/01/20 16:52 04/01/20 20:54 04/02/20 08:06 04/02/20 08:35 Glucose (Fingerstick) 100 mg/dL (70-99) 74 mg/dL (70-99) 65 mg/dL (70-99) 93 mg/dL (70-99) Test 04/02/20 11:17 Glucose (Fingerstick) 82 mg/dL (70-99) Physical Exam HEENT: Neck Supple W Full Motion Chest: Symmetric LUNGS: Other (diminished bases ) Heart: RRR, murmurs (2/6 systolic murmur ) Abdomen: Soft N/T Extremities: No Edema Neurology: alert, oriented, follow commands Assessment Assessment 1. Abdominal, epigastric pain. 2. Acute cholecystitis; s/p lap patty. POD#2. Is doing well postoperatively. 3. PAFIB; brief period post-op. converted back to SR. Echo with preserved LV systolic function. TSH WNL 3. Accelerated hypertension; now controlled 4. Diabetes, II Recommendations Continue BB for rate control Xarelto add for stroke prophylaxis Will arranged outpatient event monitor to assess AFIB burden, guide therapy. Lipid panel Consider outpatient ischemic evaluation Post-op management as per ortho Justicifation of Admission Dx: Justifications for Admission: Justification of Admission Dx: Yes MANNY PERALTA MD 04/03/20 0839: CARDIO Progress Notes Assessment Assessment Patient seen and examined 04/02/20. Agree with VP BIOLOGY's assessment and plan. Atrial fibrillation in the postoperative setting, presently back in sinus rhythm. 2D echo showed normal LV systolic function with mild left ear. Blood pressure better controlled. Continue Xarelto for stroke prophylaxis for now. Plan for outpatient event monitor to assess atrial fibrillation burden and guide anticoagulation/antiarrhythmic therapy. Continue postop care per GS team. JILL LOPEZ APRN Apr 02, 2020 12:41 MANNY PERALTA MD Apr 03, 2020 08:39
--- NOTE | 2020-04-02 12:41 | CARD ---
MR#: [id number] Date of Study: 04/02/2020 Ordering Physician: FRANK DIA, Referring Physician: FRANK DIA Tech: Jennifer Stewart DHRUV APPROVED REPORT EXAM: Two-dimensional and M-mode echocardiogram with Doppler and color Doppler. Other Information Quality : GoodHR: 65bpm Rhythm : NSR INDICATION Atrial Fibrillation Chest Pain Syncope RISK FACTORS Hypertension Obesity Hyperlipidemia Diabetes 2D DIMENSIONS RVDd2.8 (2.9-3.5cm)Left Atrium(2D)3.6 (1.6-4.0cm) IVSd1.3 (0.7-1.1cm)Aortic Root(2D)2.8 (2.0-3.7cm) LVDd4.2 (3.9-5.9cm)LVOT Diameter2.1 (1.8-2.4cm) PWd1.3 (0.7-1.1cm)LVDs2.0 (2.5-4.0cm) FS (%) 52.4 %SV65.8 ml Aortic Valve AoV Peak Theron.263.7cm/sAoV VTI56.6cm AO Peak GR.27.8mmHgLVOT Peak Theron.122.3cm/s AO Mean GR.14mmHgAVA (VMAX)1.61cm2 Mitral Valve MV E Yhgmoqjh165.7cm/sMV DECEL FXOB555ku MV A Cuccwpft57.1cm/sE/A Ratio1.4 Tricuspid Valve TR P. Egqyrijq859yk/sTR Peak Gr.33mmHg Pulmonary Vein S1 Nvtvupmf14.3cm/sD2 Zfxdmvxu99.4cm/s PVa sojgdnbi208avrw LEFT VENTRICLE The left ventricle is normal size. There is mild concentric left ventricular hypertrophy. The left ve ntricular systolic function is normal and the ejection fraction is within normal range. LV ejection f raction 60 to 65%. There is normal LV segmental wall motion. Transmitral Doppler flow pattern is Grad e I-abnormal relaxation pattern. RIGHT VENTRICLE The right ventricle is normal size. There is normal right ventricular wall thickness. The right ventr icular systolic function is normal. ATRIA The left atrium size is normal. The right atrium size is normal. The interatrial septum is intact wit h no evidence for an atrial septal defect or patent foramen ovale as noted on 2-D or Doppler imaging. AORTIC VALVE The aortic valve is mildly calcified. Doppler and Color Flow revealed mild aortic regurgitation. Ther e is mild valvular aortic stenosis. Peak pressure gradient calculated to be 28 mmHg with a mean press ure gradient of 14 mmHg. MITRAL VALVE The mitral valve is normal in structure and function. There is no evidence of mitral valve prolapse. There is no mitral valve stenosis. Doppler and Color-flow revealed mild mitral regurgitation. TRICUSPID VALVE The tricuspid valve is normal in structure and function. Doppler and Color Flow revealed mild tricusp id regurgitation. Estimated PAP 36 mmHg. PULMONIC VALVE The pulmonary valve is normal in structure and function. Doppler and Color Flow revealed no pulmonic valvular regurgitation. GREAT VESSELS The aortic root is normal in size. The ascending aorta is normal in size. The pulmonary artery is nor mal. The IVC is normal in size and collapses >50% with inspiration. PERICARDIAL EFFUSION There is no evidence of significant pericardial effusion. Critical Notification Critical Value: No <Conclusion> The left ventricle is normal size. The left ventricular systolic function is normal and the ejection fraction is within normal range. LV ejection fraction 60 to 65%. There is normal LV segmental wall motion. There is mild concentric left ventricular hypertrophy. Doppler and Color Flow revealed mild aortic regurgitation. There is mild valvular aortic stenosis. Peak pressure gradient calculated to be 28 mmHg with a mean pressure gradient of 14 mmHg. Doppler and Color-flow revealed mild mitral regurgitation. Doppler and Color Flow revealed mild tricuspid regurgitation. Estimated PAP 36 mmHg. Signed by : Duane Tuttle MD Electronically Approved : 04/02/2020 12:41:05
[2020-04-02 14:37] VITALS: BP 131/87
[2020-04-02] MEDS: DEXTROSE 50% 25 GM / 50ML DISP.SYRIN. IV PRN (16:23)
--- NOTE | 2020-04-02 16:34 | EKG ---
[facility] [address] [place] [address] Test Date: 2020-03-30 Test Time: 06:56:56 Pat Name: MELO SALDIVAR Department: Room: Gender: F Demographic Analyst: : 1940 Requested By: FERCHO GEE Order Number: [id number] Reading MD: Measurements Intervals [place] Rate: 59 P: 0 MN: 162 QRS: 44 QRSD: 106 T: 55 QT: 450 QTc: 450 Interpretive Statements SINUS RHYTHM NO SPECIFIC ECG ABNORMALITIES RI6.01 No previous ECG available for comparison
[2020-04-02 19:50] VITALS: BP 143/57
[2020-04-02] MEDS ORDERED: INSULIN GLARGINE SYRINGE. SQ SCH (21:00)
[2020-04-02 22:35] VITALS: BP 149/60
[2020-04-03] MEDS: PIPERACILLIN/TAZOBACTAM 2.25 GM in IV NORMAL SALINE 50ML 50 ML IV SCH ×2 (00:26→06:00)
[2020-04-03 02:50] VITALS: BP 150/69
--- NOTE | 2020-04-03 03:21 | NUR ---
bs at 2100 was 100. gave half of her lantus. at 0315 rechecked bs is 49. following protocol. pt is awake and talking. lcrn
[2020-04-03] MEDS: DEXTROSE 50% 25 GM / 50ML DISP.SYRIN. IV PRN (04:14)
[2020-04-03 07:00] VITALS: BP 159/62
[2020-04-03 07:19] LABS: CHOLESTEROL/HDL RATIO 3.3
[2020-04-03] MEDS: ALLOPURINOL 100 MG TABLET. PO SCH (08:57)
[2020-04-03] MEDS: CARVEDILOL 6.25 MG TABLET. PO SCH (08:57)
[2020-04-03] MEDS: LACTOBACILLUS RHAMNOSUS GG 1 CAPSULE. PO SCH (08:58)
[2020-04-03] MEDS: FLUoxetine HCL 20 MG CAPSULE PO SCH (08:58)
--- NOTE | 2020-04-03 09:14 | SNU/HH DC ---
DISCHARGE WITH HOME HEALTH DISCHARGE INFORMATION: Final Diagnosis: Problems Medical Problems: (1) Acute cholecystitis Status: Acute (2) Chest pain Status: Acute (3) Hypertensive urgency Status: Acute Condition on Discharge: Stable CODE STATUS: Code Status: Full HOME HEALTH: Face to Face: I certify this patient is under my care and that I, or a nurse practitioner or physician's optometry assistant working with me, had a face to face encounter that meets the physician face to face encounter requirements with this patient on []. RN For Eval/Treatment: Yes Pt Meets Homebound Status: Unsteady balance w/ amb, POST DISCHARGE ORDERS: Activity Instructions for Disc: Activity as tolerated Weight Bearing Status after Di: As tolerated DIET AFTER DISCHARGE: ADA Wound/Incision Care: No wound care needed CHECKS AFTER DISCHARGE: Checks after discharge: Check blood press - daily, Check blood sugar, ac/hs, Check your Temp as needed, Weigh Yourself Daily TREATMENT/EQUIPMENT ORDERS: Adaptive Equipment Issued: None CERTIFICATION STATEMENT: Certification Statement: Certification Statement: Based on the above finding, I certify that this patient is confined to the home and needs intermittent fci care, physical therapy and/or speech therapy, or continues to need occupational therapy.~ This patient is under my care, and I have initiated the establishment of the plan of care.~ This patient will be followed by myself or a community physician who will periodically review the plan of care. Home Meds Reported Medications Colchicine (Colchicine) 0.6 Mg Tablet, 1 TAB PO DAILY for gout 03/30/20 Metoprolol Tartrate (METOPROLOL TARTRATE) 25 Mg Tablet, 1 TAB PO BID for htn MDD 25 for 90 Days, #90 03/30/20 Carvedilol (Carvedilol) 6.25 Mg Tablet, 1 TAB PO BID for htn 03/30/20 Insulin Glargine,Hum.rec.anlog (LANTUS SOLOSTAR) 100 Unit/1 Ml Insuln.pen, 33 UNITS SQ QHS for diabetes 03/30/20 Allopurinol (ALLOPURINOL) 100 Mg Tablet, 100 MG PO DAILY for 10/12/19 Fluoxetine Hcl (FLUOXETINE HCL) 40 Mg Capsule, 40 MG PO DAILY for 10/12/19 Atorvastatin Calcium (ATORVASTATIN CALCIUM) 40 Mg Tablet, 40 MG PO DAILY for 10/12/19 Amlodipine Besylate (AMLODIPINE BESYLATE) 10 Mg Tablet, 10 MG PO DAILY, TAB 9/17/18 Insulin Glargine,Hum.rec.anlog (Paige Jones) 300 Unit/1 Ml Insuln.pen, 35 UNIT SQ DAILY, EACH 11/23/17 FRANK DIA MD Apr 03, 2020 09:14
--- NOTE | 2020-04-03 09:16 | PDOC ---
Provider Note Date of Service: DATE: 04/03/20 TIME: 09:16 Provider Note [id number] Justifications for Admission Other Justification FRANK DIA MD Apr 03, 2020 09:16
--- NOTE | 2020-04-03 09:29 | DS ---
DATE OF DISCHARGE: 04/03/2020 HOSPITAL SUMMARY: A 80-year-old white female who came in with abdominal pain consistent with gallbladder source and chest CT scan and gallbladder sonogram was consistent with gallstones with inflammatory changes. Chest x-ray was clear. COVID test was negative. Chemistry studies were unremarkable as was the CBC. She went to laparoscopic surgery, did well after that with Dr. Quinn, then developed atrial fibrillation with rapid ventricular response afterward. She required IV diltiazem for about 8 hours. This resolved and oral meds have been effective since then. Echocardiogram was unremarkable and she is able to be followed as an outpatient at this point. FINAL DIAGNOSES: 1. Acute cholecystitis with cholelithiasis. 2. Atrial fibrillation with rapid ventricular response, resolved. OPERATIONS AND PROCEDURES: Laparoscopic cholecystectomy. COMPLICATIONS: None. CONSULTATIONS: Dr. Gipson's group, Dr. Quinn. DISPOSITION: Home meds remain the same. Office followup with Dr. Quinn 1 week, Dr. Dia and Dr. Masters as scheduled and home meds remain the same. Regular diet, ADA given her insulin use. PROGNOSIS: Good. FRANK DIA MD DR: GRACE/sherly JOB#: [id number] / [id number]
--- NOTE | 2020-04-03 10:50 | NUR ---
SS following for discharge planning. SS reviewed pt chart and discussed with pt RN. Pt is from home with family and is currently on room air. Discharge order on the chart for home with self care. Addendum: 04/03/20 at 1055 by CODY GAMA CORRECTION TO NOTE: Discharge orders received for home with home healthcare. Pt accepted on services with [facility], ; fax [phone]. SS phoned and faxed discharge orders to [facility]. Pt's RN notified.
[2020-04-03 11:00] VITALS: BP 124/54
--- NOTE | 2020-04-03 11:43 | PDOC ---
JILL LOPEZ WINDOW SHADE ESTIMATOR 04/03/20 1143: CARDIO Progress Notes Date and Time Date of Service 04/03/20 Time of Evaluation 1130 Subjective Subjective: No Chest Pain, No Palpitations, No Dizziness Vitals Vitals Vital Signs Date Time Temp Pulse Resp B/P (MAP) Pulse Ox O2 Delivery O2 Flow Rate FiO2 04/03/20 08:58 74 159/62 04/03/20 08:00 Room Air 04/03/20 07:00 97.4 18 97 97.4 Weight Weight [ ] Input and Output Intake and Output Intake and Output 04/03/20 07:00 Intake Total 560 ml Output Total 600 ml Balance -40 ml Intake Oral 560 ml Output Urine Total 600 ml # Voids 3 Laboratory Labs Laboratory Tests Test 04/02/20 16:15 04/02/20 16:41 04/02/20 20:56 04/03/20 03:19 Glucose (Fingerstick) 57 mg/dL (70-99) 121 mg/dL (70-99) 100 mg/dL (70-99) 49 mg/dL (70-99) Test 04/03/20 06:33 04/03/20 07:45 Triglycerides Level 85 mg/dL (0-150) Cholesterol Level 141 mg/dL (0-200) LDL Cholesterol, Calculated 81 mg/dL (0-100) VLDL Cholesterol, Calculated 17 mg/dL (0-40) Non-HDL Cholesterol Calculated 98 mg/dL (0-129) HDL Cholesterol 43 mg/dL (40-60) Cholesterol/HDL Ratio 3.3 Glucose (Fingerstick) 138 mg/dL (70-99) Physical Exam HEENT: Neck Supple W Full Motion Chest: Symmetric LUNGS: Other (diminished bases ) Heart: RRR, murmurs (2/6 systolic murmur ) Abdomen: Soft N/T Extremities: No Edema Neurology: alert, oriented, follow commands Assessment Assessment 1. Abdominal, epigastric pain. 2. Acute cholecystitis; s/p lap patty. POD#2. Is doing well postoperatively. 3. PAFIB; brief period post-op. converted back to SR. Echo with preserved LV systolic function. TSH WNL 3. Accelerated hypertension; now controlled 4. Diabetes, II Recommendations Continue BB for rate control Xarelto added for stroke prophylaxis for now Outpatient event monitor arranged to assess AFIB burden, guide therapy. Consider outpatient ischemic evaluation Post-op management as per ortho Follow up in our office as scheduled with Dr. Oviedo Justicifation of Admission Dx: Justifications for Admission: Justification of Admission Dx: Yes MANNY OVIEDO MD 04/03/202104: CARDIO Progress Notes Assessment Assessment Patient seen and examined. Agree with ROUTING CLERK's assessment and plan. Atrial fibrillation in the postoperative setting, presently back in sinus rhythm. 2D echo showed normal LV systolic function Blood pressure better controlled. Continue Xarelto for stroke prophylaxis for now. Plan for outpatient event monitor to assess atrial fibrillation burden and guide anticoagulation/antiarrhythmic therapy. Continue postop care per GS team. JILL LOPEZ APRN Apr 03, 2020 11:43 MANNY OVIEDO MD Apr 03, 2020 21:05
--- NOTE | 2020-04-03 13:10 | NUR ---
Discharge Note: CRYSTAL SALDIVAR Discharge instructions and discharge home medications reviewed with Patient and Granddaughter and a copy given. All questions have been answered and understanding verbalized. Patient given instructions on follow up appointments and event monitor that is to be mailed. The following instructions and handouts were given: Laparoscopic Cholecystectomy care after Discontinued lines and drains: Peripheral IV intact. Patient discharged to Home w/services with Family Member via Wheelchair
[2020-04-03] MEDS ORDERED: RIVAROXABAN 15 MG TABLET. PO SCH (17:00)
== END 2020-04-03 13:08 | disposition home health service (06) | DRG 419 ==
LOC: ER 06:54 → 5 NORTH 10:00 → 2 NORTH 03-31 15:39
PROVIDERS: ADMIT Family Medicine; ATTEND Family Medicine
PROC: 0FT44ZZ Resection of Gallbladder, Percutaneous Endoscopic Approach (ICD-10-PCS; principal; 2020-03-31 08:00)
DX: K80.00 Calculus of gallbladder with acute cholecystitis without obstruction (principal); E11.22 Type 2 diabetes mellitus with diabetic chronic kidney disease; E78.5 Hyperlipidemia, unspecified; I12.9 Hypertensive chronic kidney disease with stage 1 through stage 4 chronic kidney disease, or unspecified chronic kidney disease; I16.0 Hypertensive urgency; I48.0 Paroxysmal atrial fibrillation; N18.32 Chronic kidney disease, stage 3b; F41.9 Anxiety disorder, unspecified; M10.9 Gout, unspecified; M19.90 Unspecified osteoarthritis, unspecified site; R01.1 Cardiac murmur, unspecified; K82.8 Other specified diseases of gallbladder; Z20.822 Contact with and (suspected) exposure to COVID-19; E11.65 Type 2 diabetes mellitus with hyperglycemia; Z79.01 Long term (current) use of anticoagulants; Z79.4 Long term (current) use of insulin; Z85.528 Personal history of other malignant neoplasm of kidney; Z90.5 Acquired absence of kidney; Z90.710 Acquired absence of both cervix and uterus
CPT/HCPCS: 36415; 70450; 71045; 74176; 76705; 80053; 80061; 82962; 83690; 83735; 83880; 84443; 84484; 85025; 87426; 88304; 93005; 93306; 96374; 96375; 99285; J0330; J0360; J1100; J1650; J1815; J2270; J2405; J2543; J2704; J2710; J2765; J3010; J3490; J7030; J7120; Q9967; U0003; G0378